=== PATIENT | female | born 1970 | race African-American/Black ===

== ENCOUNTER 2019-12-24 13:23 | Inpatient (IN) | payer MEDICAID ==
[~2019-12-24] VITALS: Ht 172.7 cm; Wt 124.0 kg
[~2019-12-24 13:23] MED LIST: AMIT50TA3 PO; ESOM40CA39 PO; FERR325T50 PO; FOLI1TAB51 PO; GABA100C9 PO; LISI-711; LORA0.5T20 PO; METO-159 PO; MORP30TA5 PO; NOR10T PO; PRE5T PO; SUCR1SUS10 PO; TOPI25TA32 PO
[2019-12-24] MEDS ORDERED: SODIUM CHLORIDE 0.9% 1,000 ML IV ONE ×2 (13:41→15:15)
[2019-12-24 14:08] LABS: Basophils # (auto) 0.1 10 ^3/uL (0-0.2); Basophils % (auto) 0.5 % (0.0-2.0); Eosinophils # (auto) 0.1 10 ^3/uL (0-0.8); Hematocrit 33.6 % (36.0-46.0); Hemoglobin 11.1 g/dL (12.2-16.2); Lymphocytes # (auto) 0.3 10 ^3/uL (0.4-5.4); Lymphocytes % (auto) 3.5 % (10.0-50.0); Mean Corpuscular Hemoglobin 30.4 pg (28.0-32.0); Mean Corpuscular Hgb Conc. 32.9 g/dL (32.0-36.0); Mean Corpuscular Volume 92.4 fL (80.0-100.0); Monocytes # (auto) 0.1 10 ^3/uL (0-1.3); Monocytes % (auto) 1.5 % (0.0-12.0); Neutrophils % (auto) 93.5 % (37.0-80.0); Platelet Count (auto) 309 10^3/uL (140-450); Red Blood Cells 3.64 10^6/uL (4.0-5.20); Red Cell Distribution Width 13.6 % (11.8-14.3); White Blood Cell 9.7 10^3/uL (4.4-10.8)
[2019-12-24 14:31] LABS: Albumin 2.3 g/dL (3.4-5.0); Calcium 7.9 mg/dL (8.5-10.1)
[2019-12-24 14:34] LABS: Bilirubin, Total 0.2 mg/dL (0.2-1.0); Lactic Acid w/Reflex 4.4 mmol/L (0.4-2.0); Total Protein 6.2 g/dL (6.4-8.2)
[2019-12-24] MEDS ORDERED: NOREPINEPHRINE 8 MG/250ML KIT 250 ML IV ONE (14:43)
[2019-12-24 14:47] LABS: Urine Bacteria MANY /hpf (None Seen); Urine Blood 2+ /uL (Negative); Urine Specific Gravity 1.017 (1.001-1.035); Urine WBC 137 /hpf (0 - 5); Urine WBC Clumps PRESENT /hpf (None Seen)
[2019-12-24] MEDS: POTASSIUM CHL 20MEQ/100ML 100 ML IV SCH ×2 (14:50→17:00)
[2019-12-24] MEDS: NOREPINEPHRINE 8 MG/250ML KIT 250 ML IV SCH (15:05)
[2019-12-24 15:10] LABS: Potassium 2.7 mmol/L (3.5-5.1)
[2019-12-24] MEDS ORDERED: cefTRIAXone 1GM/50ML D5W 50 ML IV ONE (15:30)
[2019-12-24] MEDS ORDERED: SUCCINYLCHOLINE CHLORIDE 20 MG/ML 10ML VIAL IV ONE ×4 (15:48→19:00)
[2019-12-24] MEDS ORDERED: ETOMIDATE (2MG/ML) 20ML VIAL IV ONE ×4 (15:48→19:00)
[2019-12-24] MEDS ORDERED: NITROGLYCERIN 0.4 MG SL TAB SL PRN (16:45)
[2019-12-24] MEDS ORDERED: VASOPRESSIN 50 UNITS in D5W 5% 247.5 ML IV ONE (16:45)
[2019-12-24] MEDS ORDERED: MORPHINE SULF INJ 2 MG/ML SYRINGE 1ML IV PRN (16:45)
[2019-12-24] MEDS: MIDAZOLAM DRIP 50 mg/50mL 50 ML IV SCH (16:50)
[2019-12-24] MEDS ORDERED: MIDAZOLAM DRIP 50 mg/50mL 50 ML IV ONE (17:01)
[2019-12-24] MEDS: fentaNYL Drip 2500mCg/250mlNS 250 ML IV SCH (17:55)
[2019-12-24 18:59] VITALS: BP 88/49
[2019-12-24] MEDS: PIPERACILLIN-TAZOB 3.375GM 100 ML IV SCH (20:13)
[2019-12-24 20:31] LABS: CRP High Sensitivity 5.35 mg/dL (< 0.3)
[2019-12-24 20:45] VITALS: BP 107/62
[2019-12-24] MEDS: HYDROCORTISONE SOD SUCC 100 MG/2ML INJ VIAL IV SCH (22:00)
[2019-12-24 22:30] VITALS: BP 113/54
[2019-12-24] MEDS: LINEZOLID 600MG/300ML 300 ML IV SCH (23:01)
[2019-12-25] VITALS (12 sets, daily range): BP systolic 88–148; BP diastolic 52–87
[2019-12-25] MEDS: PHENYLEPHRINE IV 250 ML IV SCH ×4 (00:29→17:40)
[2019-12-25] MEDS ORDERED: PROPOFOL 0 ML IV ONE (00:39)
[2019-12-25] MEDS: PIPERACILLIN-TAZOB 3.375GM 100 ML IV SCH ×4 (00:49→18:19)
[2019-12-25] MEDS: ACETAMINOPHEN 650 mg PER 20 mL UD GT PRN (02:31)
[2019-12-25] MEDS: PROPOFOL 100 ML IV SCH ×2 (04:30→21:37)
[2019-12-25 05:08] LABS: Basophils # (auto) 0.1 10 ^3/uL (0-0.2); Basophils % (auto) 0.4 % (0.0-2.0); Eosinophils # (auto) 0 10 ^3/uL (0-0.8); Eosinophils % (auto) 0.2 % (0.0-7.0); Hematocrit 32.2 % (36.0-46.0); Hemoglobin 10.7 g/dL (12.2-16.2); Lymphocytes # (auto) 0.5 10 ^3/uL (0.4-5.4); Lymphocytes % (auto) 3.1 % (10.0-50.0); Mean Corpuscular Hemoglobin 30.6 pg (28.0-32.0); Mean Corpuscular Hgb Conc. 33.4 g/dL (32.0-36.0); Mean Corpuscular Volume 91.6 fL (80.0-100.0); Monocytes # (auto) 0.4 10 ^3/uL (0-1.3); Monocytes % (auto) 2.8 % (0.0-12.0); Neutrophils # (auto) 13.9 10 ^3/uL (1.6-8.6); Neutrophils % (auto) 93.5 % (37.0-80.0); Nucleated Red Blood Cells % 0.1 %; Platelet Count (auto) 310 10^3/uL (140-450); Red Blood Cells 3.51 10^6/uL (4.0-5.20); Red Cell Distribution Width 13.7 % (11.8-14.3); White Blood Cell 14.8 10^3/uL (4.4-10.8)
--- NOTE | 2019-12-25 06:20 | NUR ---
Respiratory note: RECEIVED PATIENT ON V19 ESPRIT VENT ORALLY INTUBATED WITH AN 8.0 ETT SECURED VIA MAKENZIE AT THE 24CM MARKING AT THE KIP, AND MECHANICALLY VENTILATED WITH THE CHARTED SETTINGS. SPO2 100%, LUNG SOUNDS CL/DIM T/O, NO SECRETIONS WHEN SUCTIONED. SKIN IS WARM/DRY TO THE TOUCH AND IS INTACT NEAR MAKENZIE SITE. THERE IS AN OGT IN PLACE AND SECURED TO THE ETT. NO ADVANCE ACCESS LINES NOTED. NON PITTING EDEMA NOTED IN BILATERAL UPPER EXTREMITIES, NO EDEMA NOTED IN LOWER EXTREMITIES. NO NEW AM CXR TO ASSESS. PATIENT IS UNRESPONSIVE TO BOTH VERBAL/TACTILE STIMULI AND IS SEDATED ON VERSED AND FENTANYL DRIPS. SHE IS RESTING COMFORTABLY AND TOLERATING VENT WELL. FIO2 DECREASED TO 30%, RN ARELI MADE AWARE OF CHANGE. VENT PLUGGED INTO RED OUTLET AND ALL ALARMS ARE SET AND AUDIBLE. WILL CONTINUE TO ASSESS PATENT WELL VENTILATOR FUNCTION.
[2019-12-25] MEDS: fentaNYL Drip 2500mCg/250mlNS 250 ML IV SCH (06:47)
[2019-12-25] MEDS: HYDROCORTISONE SOD SUCC 100 MG/2ML INJ VIAL IV SCH ×2 (09:01→22:43)
[2019-12-25] MEDS ORDERED: ENOXAPARIN SOD 80 MG/0.8ML SYRINGE SC SCH (10:00)
[2019-12-25] MEDS: LINEZOLID 600MG/300ML 300 ML IV SCH ×2 (10:14→22:57)
--- NOTE | 2019-12-25 11:43 | NUR ---
WOUND CARE NOTE: Wound care in to see patient per wound care request regarding wounds that are noted present on admission. Bedside nurse took photograph of patient's wounds upon admission for reference. Patient is 49 years old female with admitting diagnosis of Septic Shock. Patient is resting in ER bed#7. Patient is intubated, sedated and mechanically ventilated. Her Zay score is 12. Skin/wound assessment done with the assistance of patient's nurse, VALERIA Martinez. Noted patient's sacral and posterior thighs has scattered pink scar tissue with multi open full thickness wounds to L proximal sacrum (4x0.8cm), L distal sacrum (0.8x1cm) and Rt distal sacrum/posterior thigh (4x2x0.3cm). Patient's wounds to L sacrum and Rt lower buttocks are consistent with Stage 3 pressure injuries with moisture associated skin damage. 0.8x2.2cm open partial thickness wound noted on patent's medial sacrum at intragluteal fold. Cleansed patient's sacral, buttocks with wound cleanser,patted dry with gauze, applied Thera honey gel to open wounds and Z Guard cream to nichole wound and lower buttocks. Covered wounds with Opti foam sacral /gentle dressing. Patient's lower abdominal fold noted with moist erythremic skin with multi superficial,partial thickness skin tear consistent with intertriginous dermatitis. Cleansed site with mild soap and water,patted dry and applied Antifungal clear ointment and placed clean line to help wick moisture. Patient;s L great toe noted with missing toe nail and has dried blood/scab, area is clean and dry, left open to air. Patient tolerated, repositioned patient for comfort facing her L side, redistributed pressure points with pillows. VALERIA Martinez at bedside. RECOMMENDATION: Nursing to continue with BID/PRN cleaning and application of Z Guard cream lower buttocks,perineum; Antifungal clear to abdominal fold intertrigo ; Daily/PRN dressing change to multi open wounds to L sacrum and Rt lower buttocks and high per MD order,Dietary consult, frequent turning and repositioning schedule as condition permits, redistribute pressure points with pillows,air mattress (ordered), frequent nichole care/check, keep clean and dry, elevate heels on pillows, continue monitoring by wound care while patient is hospitalized. Addendum: 12/25/19 at 1629 by Loreta Miller RN Amended: Links added.
--- NOTE | 2019-12-25 12:23 | NUR ---
AIR MATTRESS: Air mattress ordered at [facility]. MEGAN 12/25/19 @ 1820. Reference #[id number]. Please call [facility] at if needed to follow up. Addendum: 12/25/19 at 1224 by Loreta Miller RN Amended: Links added.
[2019-12-25 13:40] LABS: BUN/Creatinine Ratio 21.3; Calcium 8.2 mg/dL (8.5-10.1); Phosphorus 3.6 mg/dL (2.5-4.90)
[2019-12-25] MEDS: ALBUMIN 25% 100 ML IV SCH ×2 (13:40→22:42)
[2019-12-25] MEDS ORDERED: POTASSIUM CHLORIDE 40 MEQ, LIDOCAINE 1% (LOCAL ANESTH.) 4 ML in SODIUM CHL 0.9% 100 ML IV ONE (14:15)
[2019-12-25] MEDS: SOD CHL 0.45% 1,000 ML IV SCH (14:42)
[2019-12-25] MEDS: NOREPINEPHRINE 8 MG/250ML KIT 250 ML IV SCH (15:06)
[2019-12-25] MEDS: MIDAZOLAM DRIP 50 mg/50mL 50 ML IV SCH (16:41)
[2019-12-26] VITALS (12 sets, daily range): BP systolic 112–162; BP diastolic 58–95
[2019-12-26] MEDS: PIPERACILLIN-TAZOB 3.375GM 100 ML IV SCH ×2 (00:37→06:33)
[2019-12-26] MEDS: PHENYLEPHRINE IV 250 ML IV SCH ×3 (02:00→18:40)
[2019-12-26] MEDS: SOD CHL 0.45% 1,000 ML IV SCH ×3 (04:48→20:15)
[2019-12-26 06:39] LABS: Basophils # (auto) 0 10 ^3/uL (0-0.2); Basophils % (auto) 0.1 % (0.0-2.0); Eosinophils # (auto) 0 10 ^3/uL (0-0.8); Hematocrit 25.9 % (36.0-46.0); Hemoglobin 8.7 g/dL (12.2-16.2); Lymphocytes # (auto) 0.4 10 ^3/uL (0.4-5.4); Lymphocytes % (auto) 2.9 % (10.0-50.0); Mean Corpuscular Hgb Conc. 33.8 g/dL (32.0-36.0); Mean Corpuscular Volume 91.8 fL (80.0-100.0); Monocytes # (auto) 0.4 10 ^3/uL (0-1.3); Monocytes % (auto) 3.2 % (0.0-12.0); Neutrophils % (auto) 93.8 % (37.0-80.0); Platelet Count (auto) 230 10^3/uL (140-450); Red Blood Cells 2.82 10^6/uL (4.0-5.20); Red Cell Distribution Width 13.6 % (11.8-14.3); White Blood Cell 12.7 10^3/uL (4.4-10.8)
[2019-12-26] MEDS: ALBUMIN 25% 100 ML IV SCH (06:57)
[2019-12-26 07:14] LABS: BUN/Creatinine Ratio 18.3; Calcium 8.5 mg/dL (8.5-10.1)
[2019-12-26] MEDS: NOREPINEPHRINE 8 MG/250ML KIT 250 ML IV SCH (11:00)
[2019-12-26] MEDS: HYDROCORTISONE SOD SUCC 100 MG/2ML INJ VIAL IV SCH ×2 (13:37→22:00)
[2019-12-26] MEDS: LINEZOLID 600MG/300ML 300 ML IV SCH ×2 (13:38→22:00)
[2019-12-26] MEDS ORDERED: ERTAPENEM SOD 1 GM INJ VIAL IM SCH (15:00)
[2019-12-26] MEDS ORDERED: POTASSIUM CHLORIDE 40 MEQ, LIDOCAINE 1% (LOCAL ANESTH.) 4 ML in SODIUM CHL 0.9% 100 ML IV ONE (15:45)
--- NOTE | 2019-12-26 15:50 | NUR ---
Nutrition consult/assessment Notes please see attached link for complete assessment [employer] needs ABW 113 [id number] kcals (17-20 kcal/kgBW), Est Protein needs: 113-123 gms/day (1.0-1.1 gm/kgBW). Will continue to monitor and reassess prn. Rec: Glucerna @ 70 ml/hr per MD approval Addendum: 12/26/19 at [address] Amended: Links added.
[2019-12-26] MEDS: fentaNYL Drip 2500mCg/250mlNS 250 ML IV SCH (17:47)
[2019-12-26] MEDS: MIDAZOLAM DRIP 50 mg/50mL 50 ML IV SCH (18:28)
[2019-12-26] MEDS: PROPOFOL 100 ML IV SCH (18:37)
--- NOTE | 2019-12-26 22:15 | NUR ---
RT Transport Note: Patient transported to ICU 111 with RT Fransico Portillo and RN CHER. Patient on radiation monitor with alarms set and audible, ambu-bag/mask connected to 02 tank. Patient back on ventilator V19 with no adverse reaction noted. Transport completed without incident.
[2019-12-27] VITALS (90 sets, daily range): BP systolic 76–145; BP diastolic 40–80
[2019-12-27] MEDS: PHENYLEPHRINE IV 250 ML IV SCH ×3 (03:00→19:40)
[2019-12-27 05:00] LABS: Basophils # (auto) 0 10 ^3/uL (0-0.2); Eosinophils # (auto) 0 10 ^3/uL (0-0.8); Eosinophils % (auto) 0.1 % (0.0-7.0); Hematocrit 24.2 % (36.0-46.0); Hemoglobin 8.1 g/dL (12.2-16.2); Lymphocytes # (auto) 0.5 10 ^3/uL (0.4-5.4); Lymphocytes % (auto) 4.9 % (10.0-50.0); Mean Corpuscular Hemoglobin 30.8 pg (28.0-32.0); Mean Corpuscular Hgb Conc. 33.4 g/dL (32.0-36.0); Mean Corpuscular Volume 92.4 fL (80.0-100.0); Monocytes # (auto) 0.6 10 ^3/uL (0-1.3); Monocytes % (auto) 5.7 % (0.0-12.0); Neutrophils # (auto) 9.4 10 ^3/uL (1.6-8.6); Neutrophils % (auto) 89.3 % (37.0-80.0); Nucleated Red Blood Cells % 0.1 %; Platelet Count (auto) 201 10^3/uL (140-450); Red Blood Cells 2.62 10^6/uL (4.0-5.20); Red Cell Distribution Width 13.7 % (11.8-14.3); White Blood Cell 10.5 10^3/uL (4.4-10.8)
[2019-12-27 05:27] LABS: Albumin 2.5 g/dL (3.4-5.0); Calcium 8.3 mg/dL (8.5-10.1); Magnesium 1.9 mg/dL (1.6-2.6)
[2019-12-27 05:33] LABS: BUN/Creatinine Ratio 17.1; Bilirubin, Total 0.2 mg/dL (0.2-1.0); Total Protein 5.8 g/dL (6.4-8.2)
--- NOTE | 2019-12-27 06:00 | NUR ---
Respiratory note: RECEIVED PT ON VENT V-19 PLUGGED INTO RED OUTLET. ALL VENT ALARMS ARE AUDIBLE, AND FUNCTIONING. AMBU BAG/MASK IS AT BEDSIDE CONNECTED TO AN O2 SOURCE. ETT IS 8.0 @ THE 24 LIP LINE SECURED WITH A MAKENZIE. MOVED ETT FROM LEFT, TO CENTER. NO ORAL/SKIN BREAK DOWN NOTED. WHEN CHECKING TUBE, AND LIP LINE THERE WERE AT LEAST 10 MAGGOTS CRAWLING OUT OF PT RIGHT NOSTRIL ONTO THE MAKENZIE, AND ETT. VALERIA RODRIGUEZ WAS NOTIFIED OF FINDINGS. I SX RIGHT NASAL PASSAGE WITH YANKAUER TO CLEAR THE MAGGOTS, WELL ORAL SX FOR THIN, CLEAR SECRETIONS, AND A FEW MORE MAGGOTS. BS WERE COARSE BILATERALLY. SX ETT FOR A SCANT AMOUNT OF THIN, CLEAR SECRETIONS. GAG REFLEX NOTED. PT SKIN IS COOL/DRY TO THE TOUCH. SLIGHT EDEMA NOTED IN HANDS. NO NEW VENT CHANGES ORDERED AT THIS TIME. WILL CONTINUE TO MONITOR PT.
--- NOTE | 2019-12-27 06:38 | NUR ---
RT BROUGHT TO MY ATTENTION THAT PT HAS MAGGOTS IN HER R NOSTRIL . SHE ESTIMATED THAT THERE WERE APPROX 10 THAT SHE SX WITH THE YAUNKAR.
[2019-12-27] MEDS: SOD CHL 0.45% 1,000 ML IV SCH ×2 (09:12→09:22)
[2019-12-27] MEDS: POTASSIUM CHL 20MEQ/100ML 100 ML IV SCH ×2 (09:13→09:16)
[2019-12-27] MEDS: ERTAPENEM SOD INJ 1 GM in SODIUM CHL 0.9% 50 ML IV SCH (10:00)
[2019-12-27] MEDS ORDERED: PANTOPRAZOLE 40 MG/10 ML VIAL INJ IV ONE (10:30)
--- NOTE | 2019-12-27 10:30 | NUR ---
MD ROUNDS DR. CLEMONS AT BEDSIDE. MD UPDATED ON PATIENTS STATUS. SEE NEW ORDERS.
[2019-12-27] MEDS: LINEZOLID 600MG/300ML 300 ML IV SCH (11:03)
[2019-12-27] MEDS: HYDROCORTISONE SOD SUCC 100 MG/2ML INJ VIAL IV SCH ×2 (11:03→22:00)
[2019-12-27] MEDS: MIDAZOLAM DRIP 50 mg/50mL 50 ML IV SCH (12:49)
[2019-12-27] MEDS: fentaNYL Drip 2500mCg/250mlNS 250 ML IV SCH (12:51)
--- NOTE | 2019-12-27 13:38 | NUR ---
Family updated on pt status Family of NJDADAMARENTETE updated on patient's status and condition. All questions and concerns addressed. verbalized understanding.
[2019-12-27] MEDS: NOREPINEPHRINE 8 MG/250ML KIT 250 ML IV SCH (14:56)
[2019-12-27] MEDS: PROPOFOL 100 ML IV SCH (15:15)
[2019-12-27] MEDS ORDERED: ERTAPENEM SOD INJ 1 GM in SODIUM CHL 0.9% 50 ML IV ONE (16:45)
[2019-12-27] MEDS: SOD CHL 0.45% WITH 20MEQ KCL 1,000 ML IV SCH (18:07)
[2019-12-27] MEDS: SALINE 0.65 % NASAL SPRAY 45ML BOTTLE EACHNOSTRI SCH ×2 (18:07→22:00)
[2019-12-27] MEDS: ALBUTEROL SULF 2.5 MG/0.5ML(0.5%) NEB SOLN NEB SCH ×2 (18:30→22:09)
[2019-12-27] MEDS: IPRATROPIUM BROM 0.5 MG/2.5ML INH SOL NEB SCH ×2 (18:30→22:09)
[2019-12-27] MEDS: ACETYLCYSTEINE 10 %(100MG/ML) SOL 4ML NEB SCH ×2 (18:31→22:09)
[2019-12-27] MEDS: MUPIROCIN 2% OINT 15gm or 22gm EACHNOSTRI SCH (22:00)
[2019-12-28] VITALS (97 sets, daily range): BP systolic 92–147; BP diastolic 54–85
[2019-12-28] MEDS: IPRATROPIUM BROM 0.5 MG/2.5ML INH SOL NEB SCH ×6 (02:21→22:31)
[2019-12-28] MEDS: ALBUTEROL SULF 2.5 MG/0.5ML(0.5%) NEB SOLN NEB SCH ×6 (02:21→22:32)
[2019-12-28] MEDS: ACETYLCYSTEINE 10 %(100MG/ML) SOL 4ML NEB SCH ×6 (02:21→22:32)
[2019-12-28 04:32] LABS: Basophils # (auto) 0 10 ^3/uL (0-0.2); Eosinophils # (auto) 0 10 ^3/uL (0-0.8); Hematocrit 24.1 % (36.0-46.0); Lymphocytes # (auto) 0.5 10 ^3/uL (0.4-5.4); Monocytes # (auto) 0.5 10 ^3/uL (0-1.3); Red Blood Cells 2.59 10^6/uL (4.0-5.20)
[2019-12-28 04:36] LABS: Eosinophils % (auto) 0.2 % (0.0-7.0); Lymphocytes % (auto) 6.7 % (10.0-50.0); Mean Corpuscular Hemoglobin 30.9 pg (28.0-32.0); Mean Corpuscular Hgb Conc. 33.2 g/dL (32.0-36.0); Mean Corpuscular Volume 93.1 fL (80.0-100.0); Monocytes % (auto) 5.7 % (0.0-12.0); Neutrophils % (auto) 87.4 % (37.0-80.0); Platelet Count (auto) 219 10^3/uL (140-450); Red Cell Distribution Width 13.6 % (11.8-14.3)
[2019-12-28 04:49] LABS: BUN/Creatinine Ratio 13.1; Calcium 8.2 mg/dL (8.5-10.1); Potassium 3.6 mmol/L (3.5-5.1)
--- NOTE | 2019-12-28 07:35 | NUR ---
OPENING SHIFT NOTE REPORT RECEIVED FROM SOLAR PHOTOVOLTAIC INSTALLER RN, MORNING ASSESSMENT PERFORMED AND DOCUMENTED. PATIENT MECHANICALLY VENTILATED AND SEDATED, VSS AND DOCUMENTED. YEPEZ CATHETER DRAINING CLOUDY WITH SEDIMENT YELLOW URINE TO GRAVITY. PATIENT REPOSITIONED FOR COMFORT. FALL AND SAFETY PRECAUTIONS IN PLACE. WILL CONTINUE TO MONITOR.
[2019-12-28] MEDS: fentaNYL Drip 2500mCg/250mlNS 250 ML IV SCH (08:15)
[2019-12-28] MEDS: HYDROCORTISONE SOD SUCC 100 MG/2ML INJ VIAL IV SCH ×2 (09:11→22:00)
[2019-12-28] MEDS: ERTAPENEM SOD INJ 1 GM in SODIUM CHL 0.9% 50 ML IV SCH (09:11)
[2019-12-28] MEDS: PANTOPRAZOLE 40 MG/10 ML VIAL INJ IV SCH (09:11)
[2019-12-28] MEDS: SOD CHL 0.45% WITH 20MEQ KCL 1,000 ML IV SCH (09:12)
[2019-12-28] MEDS: SALINE 0.65 % NASAL SPRAY 45ML BOTTLE EACHNOSTRI SCH ×4 (09:13→22:00)
[2019-12-28] MEDS: MUPIROCIN 2% OINT 15gm or 22gm EACHNOSTRI SCH ×2 (09:14→22:00)
--- NOTE | 2019-12-28 09:45 | NUR ---
CARES NASAL IRRIGATION, ORAL AND GOOD CARE PERFORMED. NO MAGGOTS NOTED WHEN CLEANING NASAL CAVITY AND ORAL CARE. NASAL SPRAY AND BACTROBAN APPLIED TO BILATERAL NOSTRILS. EXCORIATED GOOD AREA WASHED WITH SOAP AND WARM WATER - YEPEZ CARE PROVIDED WELL. PATIENT CURRENTLY ON SPECIALTY BED AND REPOSITIONED FOR COMFORT. FALL AND SAFETY PRECAUTIONS IN PLACE. WILL CONTINUE TO MONITOR.
--- NOTE | 2019-12-28 11:25 | NUR ---
HOSPITALIST AT BEDSIDE DR CLEMONS UPDATED ON PATIENT'S STATUS AND AWARE THAT PATIENT IS CURRENTLY ON CPAP TRIAL SINCE [address] CLEMONS ALSO AWARE OF NO MAGGOTS NOTED AFTER AND BEFORE NASAL WASHING AND MORNING ASSESSMENT. ORDERS RECEIVED AND WILL BE CARRIED OUT.
[2019-12-28] MEDS ORDERED: FUROSEMIDE 40 MG/4 ML VIAL IV ONE (11:30)
--- NOTE | 2019-12-28 12:00 | NUR ---
Family updated on pt status Family of NJDADAMARENTETE updated on patient's status and condition after password verification. All questions and concerns addressed. Patient's spouse Ashkan verbalized understanding.
[2019-12-28] MEDS: PHENYLEPHRINE IV 250 ML IV SCH (12:20)
--- NOTE | 2019-12-28 12:22 | NUR ---
Nutrition Followup Notes Wt: 126.0 kg Pt is sedated, intubated, NPO, on CPAP trail per RN with no new diet orders per RN. [employer] needs ABW 113 [id number] kcals (17-20 kcal/kgBW), Est Protein needs: 113-123 gms/day (1.0-1.1 gm/kgBW). Will continue to monitor and reassess prn. LAB: CREAT 1.07 H, CA 8.2 L, ALB 2.5 L. GI: Pt had 1 BM today per RN doc BS: 9 high risk Please refer to wound assessment report for full details. PES: Altered nutrition related lab values r.t current chronic medical condition aeb elev RFT hyperglycemia Decreased nutrient needs r/t adiposity aeb pt`s high BMI of 50.2 kgm2 Impaired swallowing r.t current medical condition aeb pt`s intubated sedated with order of NPO Comments Will continue to monitor PO status, skin status, pertinent labs and weight trends. Will f/u in 2-3 days. 1) advance diet as medically feasible. 2) consider EN support with Glucerna @ 70 ml/hr if pt continues to be NPO. 3) refer to CDE on DC. 4) consider MVI/C bid. 5) continue current plan of care
[2019-12-28] MEDS: PROPOFOL 100 ML IV SCH (12:37)
--- NOTE | 2019-12-28 13:33 | NUR ---
assessment Patient is a 49 year old female who is on a vent in ICU. Per patients Ashkan [phone] prior to admission patient lived home with him and functioned with his assistance. Ashkan is patients SS caregiver. Patients PCP is Dr Carney. Patient has a nebulizer, wheelchair, shower chair, fww and bedside commode for home use. Ashkan informed me patient fell on her knee last May and has needed help since then. Ashkan informed me patient was having fever, shortness of breath and low blood pressure so he called 911 and patient was brought to ER and admitted. I informed Ashkan that patients post discharge needs to be determined after extubation and prior to discharge. Ashkan verbalized understanding. I Will continue to monitor and follow up as appropriate. Addendum: 12/28/19 at 1339 by Leann HOPE Amended: Links added.
--- NOTE | 2019-12-28 13:56 | NUR ---
CALL RECEIVED FROM HOSPITALIST DR CLEMONS UPDATED ON PATIENT'S STATUS AND DROWSY MENTAL STATUS. DR CLEMONS VERBALIZED UNDERSTANDING AND ORDERED PATIENT TO REMAIN ON CPAP FOR AWHILE LONGER LONG SHE TOLERATES IT BUT IF SHE DOES NOT WAKE ENOUGH, CHANGE TO AC. Antonia CAMARGO NOTIFIED.
--- NOTE | 2019-12-28 14:45 | NUR ---
PLACED PT. BACK ON AC MODE, PT. NOT AWAKE ENOUGH, NOT FOLLOWING COMMANDS. RN. TO CONTACT DR. CLEMONS.
[2019-12-28] MEDS: NOREPINEPHRINE 8 MG/250ML KIT 250 ML IV SCH (14:56)
--- NOTE | 2019-12-28 15:00 | NUR ---
CONTACT HOSPITALIST DR CLEMONS UPDATED ON PATIENT'S MENTAL STATUS AND NOT FULLY WAKING UP. ORDERS TO CHANGE CPAP TO AC AND HEAD CT WITHOUT CONTRAST.
[2019-12-28] MEDS: MEROPENEM 1GM IVPB 100 ML IV SCH ×2 (15:41→22:00)
[2019-12-28] MEDS ORDERED: Glucerna 1.2 Cal 1Liter BOTTLE GT SCH (16:00)
--- NOTE | 2019-12-28 16:20 | NUR ---
Family updated on pt status Family of TETE POLLOCK updated on patient's status and condition after password verification. All questions and concerns addressed. Patient spouse Ashkan verbalized understanding.
[2019-12-28] MEDS: MIDAZOLAM DRIP 50 mg/50mL 50 ML IV SCH (16:40)
--- NOTE | 2019-12-28 17:42 | NUR ---
INCREASED HR/RESPIRATIONS PATIENT NOTED TO BE USING ACCESSORY MUSCLES, COUGHING WITH INCREASED HEART RATE AND RESPIRATIONS. RE-START SEDATION PER PROTOCOL. AWARE.
--- NOTE | 2019-12-28 18:16 | NUR ---
OFF FLOOR TO RADIOLOGY FOR ORDERED HEAD CT VIA [facility], ACCOMPANIED BY GRETA CHARGE NURSE - Antonia AND FIELD MAP TECHNICIAN. WILL CONTINUE TO MONITOR UPON RETURN TO FLOOR.
--- NOTE | 2019-12-28 18:32 | NUR ---
PATIENT RETURNED TO FLOOR FROM RADIOLOGY, NO DISTRESS NOTED, PATIENT CONNECTED TO BEDSIDE MONITOR AND BEDSIDE VENTILATOR, R.T. AND CHARGE NURSE PRESENT. PATIENT ADJUSTED FOR COMFORT, FALL AND SAFETY PRECAUTIONS IN PLACE.
--- NOTE | 2019-12-28 19:05 | NUR ---
Report received from VALERIA Mcguire. Patient intubated with ETT 8.0 26 cm L/L. Vent Settings: AC 14, Vt 500, FiO2 30%, PEEP 5. Patient IV Drips: Fentanyl 25 mcg/kg/min. Will start TF via OGT with Glucerna. Will continue with POC; and, will continue to monitor VS, RASS, and clinical status.
--- NOTE | 2019-12-28 19:45 | NUR ---
Patient awake and alert moving RUE to ETT. RASS +2. HR ST 140's. RR 38-40. Patient fighting vent with cough. Fentanyl drip increase to 50 mcg/hr. Patient suction with scant clear secretions. Patient looking at feature writer and tracking. Patient unable to follow command. Will continue to monitor VS, RASS with Sedation, and clinical status.
--- NOTE | 2019-12-28 20:00 | NUR ---
Patient continue awake and alert; and, fighting vent and coughing. Patient moving RUE to ETT. HR ST 130's, RR 34-36. RASS +3. Fentanyl drip increase to 75 mcg/hr. Will continue to monitor VS, RASS and sedation, and clinical status. Addendum: 12/28/19 at 2118 by Ricardo Moe RN OGT Tube Feeding Glucerna 1.2 started at 30 ml/hr.
--- NOTE | 2019-12-28 20:15 | NUR ---
Patient continue agitation with RASS and moving RUE to ETT. Patient awake and alert. HR ST130, RR 28-30. Fentanyl drip increase to 100 mcg/hr. Will continue to monitor VS, RASS and sedation, and clinical status.
--- NOTE | 2019-12-28 21:05 | NUR ---
Patient Ashkan called for updated status. Tag Stringer will call patient back in 10-15 minutes.
--- NOTE | 2019-12-28 21:20 | NUR ---
Patient awake and alert with RASS +2. HR ST 130's, RR 24-27. Fentanyl drip increase to 125 mcg/hr.
--- NOTE | 2019-12-28 21:25 | NUR ---
Refrigeration Engineering Teacher calls patient Ashkan and updated patient status.
--- NOTE | 2019-12-28 22:15 | NUR ---
Patient awake and alert with RASS +1. Patient attempting to push ETT out with tongue. Fentanyl drip increase to 150 mcg/hr.
--- NOTE | 2019-12-28 22:45 | NUR ---
Patient awake and alert RASS 0. Fentanyl drip increase to175 mcg/hr. Will continue to monitor VS, RASS, and clinical status.
--- NOTE | 2019-12-28 23:45 | NUR ---
Patie awake and alert, coughing and fighting vent. Patient moving RUE to ETT and attempting to push ETT with tongue. Fentanyl drip increase to 200 mcg/hr; also, Versed drip started at 2 mg/hr. Will continue to monitor VS, RASS and sedation, and clinical status.
[2019-12-29] VITALS (103 sets, daily range): BP systolic 89–158; BP diastolic 43–96
--- NOTE | 2019-12-29 00:30 | NUR ---
Patient Awake and Alert with RASS 0. Versed drip increase to 5 mg/hr.
--- NOTE | 2019-12-29 01:00 | NUR ---
OGT TF off for CPAP trial this am.
[2019-12-29] MEDS: IPRATROPIUM BROM 0.5 MG/2.5ML INH SOL NEB SCH ×6 (02:30→22:09)
[2019-12-29] MEDS: ALBUTEROL SULF 2.5 MG/0.5ML(0.5%) NEB SOLN NEB SCH ×6 (02:30→22:09)
[2019-12-29] MEDS: ACETYLCYSTEINE 10 %(100MG/ML) SOL 4ML NEB SCH ×6 (02:30→22:10)
--- NOTE | 2019-12-29 03:10 | NUR ---
Equipment Operator at bedside. Telephone Lineman collected blood from CVC and specimens given to Equipment Operator, specimens sent to lab.
[2019-12-29 04:30] LABS: Basophils # (auto) 0 10 ^3/uL (0-0.2); Basophils % (auto) 0.1 % (0.0-2.0); Eosinophils # (auto) 0 10 ^3/uL (0-0.8); Hematocrit 25.1 % (36.0-46.0); Hemoglobin 8.2 g/dL (12.2-16.2); Lymphocytes # (auto) 0.2 10 ^3/uL (0.4-5.4); Lymphocytes % (auto) 2.8 % (10.0-50.0); Mean Corpuscular Hemoglobin 30.3 pg (28.0-32.0); Mean Corpuscular Hgb Conc. 32.8 g/dL (32.0-36.0); Mean Corpuscular Volume 92.6 fL (80.0-100.0); Monocytes # (auto) 0.3 10 ^3/uL (0-1.3); Monocytes % (auto) 3.4 % (0.0-12.0); Neutrophils # (auto) 7.5 10 ^3/uL (1.6-8.6); Neutrophils % (auto) 93.7 % (37.0-80.0); Nucleated Red Blood Cells % 0.1 %; Platelet Count (auto) 234 10^3/uL (140-450); Red Blood Cells 2.71 10^6/uL (4.0-5.20); Red Cell Distribution Width 13.7 % (11.8-14.3)
[2019-12-29 04:44] LABS: BUN/Creatinine Ratio 12.8; Potassium 3.2 mmol/L (3.5-5.1)
--- NOTE | 2019-12-29 05:30 | NUR ---
Versed drip decrease to 1 mg/hr for CPAP trial this am. Will continue to monitor VS, RASS and sedation, and clinical status.
[2019-12-29] MEDS: MEROPENEM 1GM IVPB 100 ML IV SCH ×3 (05:55→20:49)
[2019-12-29] MEDS: SALINE 0.65 % NASAL SPRAY 45ML BOTTLE EACHNOSTRI SCH ×5 (05:55→20:56)
[2019-12-29] MEDS: fentaNYL Drip 2500mCg/250mlNS 250 ML IV SCH ×2 (08:15→20:52)
[2019-12-29] MEDS: PROPOFOL 100 ML IV SCH ×2 (09:37→14:23)
--- NOTE | 2019-12-29 10:13 | NUR ---
FAMILY PHONE CALL Spoke with patient's Ashkan, password provided. Informed that during rounds physician decided to postpone any weaning trial as this time as the patient is having large amount of secretions from ETT. Verbalized understanding.
--- NOTE | 2019-12-29 10:20 | NUR ---
AT BEDSIDE Dr. Bentley at bedside, orders received. No orders for CPAP trial at this time, patient coughing and having difficult time tolerating ventilator with decreased sedation. Will increase sedation to achieve target RASS score.
[2019-12-29] MEDS: HYDROCORTISONE SOD SUCC 100 MG/2ML INJ VIAL IV SCH ×2 (10:24→20:49)
[2019-12-29] MEDS: PANTOPRAZOLE 40 MG/10 ML VIAL INJ IV SCH (10:24)
[2019-12-29] MEDS: MUPIROCIN 2% OINT 15gm or 22gm EACHNOSTRI SCH ×2 (10:26→20:49)
[2019-12-29] MEDS ORDERED: POTASSIUM CHLORIDE 20 MEQ, LIDOCAINE 1% (LOCAL ANESTH.) 2 ML in SODIUM CHL 0.9% 100 ML IV ONE (10:30)
[2019-12-29] MEDS ORDERED: POTASSIUM CHL 20MEQ/100ML 100 ML IV ONE (13:45)
[2019-12-29] MEDS: NOREPINEPHRINE 8 MG/250ML KIT 250 ML IV SCH (14:56)
--- NOTE | 2019-12-29 16:30 | NUR ---
ROUNDS: Total linen change and skin care provided. Patient tolerated well.
[2019-12-29] MEDS: MIDAZOLAM DRIP 50 mg/50mL 50 ML IV SCH ×2 (16:40→20:51)
--- NOTE | 2019-12-29 20:00 | NUR ---
SHIFT OPENING NOTE RECEIVED PATIENT SEDATED AND INTUBATED. FENTANYL AT 200, PROPOFOL AT 35. PERIODS OF ANXIETY. VENTILATOR SETTINGS AC 14, TV 500, FI02 30%, PEEP 5. POX 100%. ETT SIZE 8, WITH 26 AT THE LIP. OG TUBE INFUSING GLUCERNA 1.2 AT 40 ML/H WITH 5ML OF RESIDUALS (GOAL IS 70 ML/H). YEPEZ CATH DRAINING YELLOW URINE WITH SEDIMENT TO GRAVITY. SCDS ON. RIGHT FEMORAL TLC INFUSING DRIPS. PHYSICAL ASSESSMENT COMPLETED, SEE INTERVENTIONS. WILL CLOSELY MONITOR.
[2019-12-30] VITALS (92 sets, daily range): BP systolic 80–141; BP diastolic 42–95
[2019-12-30] MEDS: PROPOFOL 100 ML IV SCH ×4 (00:39→23:26)
[2019-12-30] MEDS: ALBUTEROL SULF 2.5 MG/0.5ML(0.5%) NEB SOLN NEB SCH ×5 (02:40→22:25)
[2019-12-30] MEDS: IPRATROPIUM BROM 0.5 MG/2.5ML INH SOL NEB SCH ×5 (02:40→22:25)
[2019-12-30] MEDS: ACETYLCYSTEINE 10 %(100MG/ML) SOL 4ML NEB SCH ×6 (02:40→22:25)
--- NOTE | 2019-12-30 02:45 | NUR ---
MORNING HYGIENE CARE FULL BED BATH PERFORMED USING CHG WIPES AND WARM SOAPY WASH CLOTHES. ORAL CARE PERFORMED. GOWN CHANGED. YEPEZ CARE DONE. PARTIAL LINEN CHANGED. PATIENT REPOSITIONED FOR COMFORT. TOLERATED IT WELL.
[2019-12-30 04:16] LABS: Basophils # (auto) 0 10 ^3/uL (0-0.2); Eosinophils # (auto) 0 10 ^3/uL (0-0.8); Lymphocytes # (auto) 0.3 10 ^3/uL (0.4-5.4); Mean Corpuscular Hgb Conc. 32.9 g/dL (32.0-36.0); Monocytes # (auto) 0.4 10 ^3/uL (0-1.3); Neutrophils # (auto) 7.8 10 ^3/uL (1.6-8.6); White Blood Cell 8.5 10^3/uL (4.4-10.8)
[2019-12-30 04:18] LABS: Basophils % (auto) 0.1 % (0.0-2.0); Hematocrit 24.3 % (36.0-46.0); Lymphocytes % (auto) 3.6 % (10.0-50.0); Mean Corpuscular Hemoglobin 30.4 pg (28.0-32.0); Mean Corpuscular Volume 92.3 fL (80.0-100.0); Monocytes % (auto) 5.1 % (0.0-12.0); Neutrophils % (auto) 91.2 % (37.0-80.0); Platelet Count (auto) 229 10^3/uL (140-450); Red Blood Cells 2.63 10^6/uL (4.0-5.20); Red Cell Distribution Width 13.4 % (11.8-14.3)
[2019-12-30 04:34] LABS: Calcium 7.9 mg/dL (8.5-10.1); Potassium 3.4 mmol/L (3.5-5.1)
[2019-12-30 04:37] LABS: Albumin 2.3 g/dL (3.4-5.0); BUN/Creatinine Ratio 15.1; Magnesium 2.2 mg/dL (1.6-2.6)
[2019-12-30 04:39] LABS: Bilirubin, Total 0.2 mg/dL (0.2-1.0); Total Protein 5.7 g/dL (6.4-8.2)
[2019-12-30] MEDS: SALINE 0.65 % NASAL SPRAY 45ML BOTTLE EACHNOSTRI SCH ×4 (05:02→22:00)
[2019-12-30] MEDS: MEROPENEM 1GM IVPB 100 ML IV SCH ×3 (05:03→22:00)
--- NOTE | 2019-12-30 07:05 | NUR ---
END OF SHIFT REPORT GIVEN AND CARE ENDORSED TO PAU SHAW.
[2019-12-30] MEDS ORDERED: POTASSIUM CHLORIDE 20 MEQ, LIDOCAINE 1% (LOCAL ANESTH.) 2 ML in SODIUM CHL 0.9% 100 ML IV ONE (09:45)
[2019-12-30] MEDS ORDERED: VANCOMYCIN 1GM/250ML 250 ML IV ONE (10:00)
[2019-12-30] MEDS ORDERED: POTASSIUM CHL 20MEQ/100ML 100 ML IV ONE (10:00)
[2019-12-30] MEDS ORDERED: VANCOMYCIN PER PHARMACY 0 MG IV SCH (10:00)
[2019-12-30] MEDS: MUPIROCIN 2% OINT 15gm or 22gm EACHNOSTRI SCH ×2 (10:00→22:00)
[2019-12-30] MEDS: HYDROCORTISONE SOD SUCC 100 MG/2ML INJ VIAL IV SCH ×2 (10:33→22:00)
[2019-12-30] MEDS: PANTOPRAZOLE 40 MG/10 ML VIAL INJ IV SCH (10:33)
--- NOTE | 2019-12-30 11:44 | NUR ---
Nutrition Followup Notes Wt: 126.0 kg Pt is sedated, intubated, sedated with propofol @ 42.86 ml/hr 1131 kcals from fats. pt is currently NPO on EN support with Glucerna @ 40 ml/hr providing 1152 kcals and 54 gm proteins. [employer] needs ABW 113 [id number] kcals (17-20 kcal/kgBW), Est Protein needs: 113-123 gms/day (1.0-1.1 gm/kgBW). Will continue to monitor and reassess prn. LAB: GLU 108 H, CA 7.9 L, ALB 2.3 L. GI: Pt had 1 BM today per RN doc BS: 9 high risk Please refer to wound assessment report for full details. PES: Altered nutrition related lab values r.t current chronic medical condition aeb elev RFT hyperglycemia Decreased nutrient needs r/t adiposity aeb pt`s high BMI of 50.2 kgm2 Impaired swallowing r.t current medical condition aeb pt`s intubated sedated with order of NPO Comments Will continue to monitor PO status, skin status, pertinent labs and weight trends. Will f/u in 2-3 days. 1) advance diet as medically feasible. 2) consider EN support with Glucerna @ 45 ml/hr if pt continues to be NPO on current rate of propofol. 3) refer to CDE on DC. 4) consider MVI/C bid. 5) consider prostat 1 packet bid. 5) continue current plan of care
[2019-12-30] MEDS: NOREPINEPHRINE 8 MG/250ML KIT 250 ML IV SCH (14:56)
--- NOTE | 2019-12-30 16:00 | NUR ---
ELIMINATION; Patient had large BM. Skin care provided, new optifoam gentle applied to sacral area. Central line dressing changed.
[2019-12-30] MEDS: VANCOMYCIN 1GM/250ML 250 ML IV SCH (18:01)
--- NOTE | 2019-12-30 19:10 | NUR ---
OPENING SHIFT RECEIVED REPORT FROM DAY SHIFT RN. ASSUMED CARE OF PATIENT. PATIENT INTUBATED AND SEDATED WITH NO SIGNS OR SYMPTOMS OF SOB, PAIN OR DISTRESS. POSITIVE COUGH AND GAG. RIGHT FEMORAL TLC AND RIGHT HAND IV - CLEAN/DRY/INTACT. YEPEZ HUNG TO GRAVITY. SEDATION: FENTANYL - 200MCG/HR PROPOFOL - 40MCG/KG/MIN REPOSITIONED FOR COMFORT. BED IN LOWEST POSITION, SIDE RAILS UP 2X. WILL CONTINUE TO MONITOR.
[2019-12-30] MEDS: fentaNYL Drip 2500mCg/250mlNS 250 ML IV SCH (19:53)
[2019-12-31] VITALS (93 sets, daily range): BP systolic 53–161; BP diastolic 41–132
[2019-12-31] MEDS: PROPOFOL 100 ML IV SCH ×2 (01:28→04:46)
[2019-12-31] MEDS: IPRATROPIUM BROM 0.5 MG/2.5ML INH SOL NEB SCH ×7 (02:00→22:13)
[2019-12-31] MEDS: ALBUTEROL SULF 2.5 MG/0.5ML(0.5%) NEB SOLN NEB SCH ×7 (02:00→22:13)
[2019-12-31] MEDS: VANCOMYCIN 1GM/250ML 250 ML IV SCH ×3 (02:09→17:00)
[2019-12-31] MEDS: ACETYLCYSTEINE 10 %(100MG/ML) SOL 4ML NEB SCH ×6 (03:00→22:13)
[2019-12-31 04:36] LABS: Hematocrit 28.4 % (36.0-46.0); Hemoglobin 9.2 g/dL (12.2-16.2); Mean Corpuscular Hemoglobin 30.6 pg (28.0-32.0); Mean Corpuscular Hgb Conc. 32.2 g/dL (32.0-36.0); Mean Corpuscular Volume 94.9 fL (80.0-100.0); Platelet Count (auto) 305 10^3/uL (140-450); Red Cell Distribution Width 14.2 % (11.8-14.3); White Blood Cell 9.5 10^3/uL (4.4-10.8)
[2019-12-31 04:50] LABS: Basophils % (manual) 0 (0.0-2.0); Blast Cells 0; Metamyelocytes % 0; Myelocytes % 0; Promyelocytes % 0; Reactive Lymphocytes 0
[2019-12-31 04:55] LABS: Albumin 2.5 g/dL (3.4-5.0); Calcium 7.7 mg/dL (8.5-10.1); Magnesium 2.4 mg/dL (1.6-2.6); Potassium 3.1 mmol/L (3.5-5.1)
[2019-12-31 04:57] LABS: BUN/Creatinine Ratio 14.9
[2019-12-31 04:59] LABS: Bilirubin, Total 0.2 mg/dL (0.2-1.0); Total Protein 6.3 g/dL (6.4-8.2)
--- NOTE | 2019-12-31 05:23 | NUR ---
MORNING CARE PERFORMED MORNING CARE WITH CHG WIPES AND WASH CLOTHS. FULL LINEN CHANGE AND GOWN CHANGED. ORAL AND YEPEZ CARE PERFORMED. REPOSITIONED FOR COMFORT. SKIN REASSESSED AT THIS TIME. WILL CONTINUE TO MONITOR.
--- NOTE | 2019-12-31 05:37 | NUR ---
HOSPITALIST SPOKE WITH HOSPITALIST, MADE AWARE OF POTASSIUM 3.1. RECEIVED ORDERS FOR 40 MEQ K RIDER IV. NOTED AND CARRIED OUT, WILL CONTINUE TO MONITOR.
[2019-12-31] MEDS ORDERED: POTASSIUM CHL 20MEQ/100ML 100 ML IV ONE (05:41)
[2019-12-31] MEDS: POTASSIUM CHL 20MEQ/100ML 100 ML IV SCH ×2 (05:52→06:48)
[2019-12-31] MEDS: MEROPENEM 1GM IVPB 100 ML IV SCH ×3 (05:53→21:42)
[2019-12-31] MEDS: SALINE 0.65 % NASAL SPRAY 45ML BOTTLE EACHNOSTRI SCH (05:53)
[2019-12-31] MEDS: fentaNYL Drip 2500mCg/250mlNS 250 ML IV SCH (06:00)
[2019-12-31 06:24] LABS: Band Neutrophils % (manual) 2; Eosinophils % (manual) 1 (0-7); Lymphocytes % (manual) 6 (10.0-50.0); Monocytes % (manual) 4 (0-12)
--- NOTE | 2019-12-31 07:37 | NUR ---
END OF SHIFT REPORT GIVEN TO DAY SHIFT RN. CARE ENDORSED.
[2019-12-31] MEDS: MUPIROCIN 2% OINT 15gm or 22gm EACHNOSTRI SCH ×2 (10:00→21:44)
[2019-12-31] MEDS: HYDROCORTISONE SOD SUCC 100 MG/2ML INJ VIAL IV SCH ×2 (10:31→21:41)
[2019-12-31] MEDS: PANTOPRAZOLE 40 MG/10 ML VIAL INJ IV SCH (10:31)
[2019-12-31] MEDS ORDERED: LORATADINE 10 MG TAB PO ONE (11:00)
--- NOTE | 2019-12-31 11:00 | NUR ---
DR. CLEMONS HERE TO SEE PATIENT. SEE MD NOTES AND EMR FOR ANY NEW ORDERS.
[2019-12-31 12:22] LABS: INR 0.99 (0.9-1.15); Partial Thromboplastin Time 24.8 sec (23.64-32.05)
[2019-12-31] MEDS: DexMEDEtomidine 400 MCG in D5W 5% 96 ML IV SCH (12:26)
--- NOTE | 2019-12-31 13:51 | NUR ---
CPAP TRIAL STARTED PER DR. CLEMONS ORDER. PATIENT PLACED ON PRECEDEX WILL CONTINUE TO ASSESS.
--- NOTE | 2019-12-31 13:51 | NUR ---
INITIATED CPAP TRIAL PT OPENS EYES WHEN STIMULATED, BUT NOT ABLE TO FOLLOW SIMPLE COMMANDS. INITIATED CPAP TRIAL ORDERED. PT TOLERATING WELL, NO S/S OF DISTRESS NOTED. SEDATION HAS BEEN TURNED OFF, PT ON PRECEDEX. RN AWARE OF CHANGES. ABG AND WEANING PARAMETERS TO FOLLOW IN ONE HOUR. WILL CONTINUE TO MONITOR.
[2019-12-31] MEDS: NOREPINEPHRINE 8 MG/250ML KIT 250 ML IV SCH (14:56)
--- NOTE | 2019-12-31 15:30 | NUR ---
ABG RESULTS AND WEANING PARAMETERS REPORTED TO DR CLEMONS. RECEIVED EXTUBATION ORDERS.
--- NOTE | 2019-12-31 15:45 | NUR ---
Patient extubated by RT Extubation order received by Dr. CLEMONS, RT at bedside. Patient extubated with no problems, patient tolerated well. Patient placed on 35% cool mist mask. Sats prior to extubation 94%, following extubation 93%. Continue to monitor.
--- NOTE | 2019-12-31 15:45 | NUR ---
EXTUBATED EXTUBATED PT WITH RN AT BEDSIDE. PLACED ON COOL MIST AEROSOL MASK, FIO2 35%. HR 90, RR 30, SPO2 94%. NO STRIDOR NOTED. PT SITTING UP IN BED, TACHYPNEIC BUT NOT IN DISTRESS.
--- NOTE | 2019-12-31 16:11 | NUR ---
SPOKE WITH SPOUSE CLIVE INFORMED HIM THAT PATIENT WAS EXTUBATED. SHE IS CURRENTLY DOING WELL. NO STRIDOR NOTED AT THIS TIME. ALL QUESTIONS ANSWERED.
[2019-12-31] MEDS: MIDAZOLAM DRIP 50 mg/50mL 50 ML IV SCH (16:40)
--- NOTE | 2019-12-31 17:12 | NUR ---
PT REMAINS ON COOL AEROSOL MASK FIO2 35%, TOLERATING WELL. HR 83, RR 18, SPO2 100%. PT SLEEPING COMFORTABLY IN BED, NO DISTRESS NOTED. WILL ENDORSE CARE TO NOC SHIFT RT.
--- NOTE | 2019-12-31 19:45 | NUR ---
OPEN NOTES ASSUMED CARE OF PATIENT. RECEIVED PATIENT AWAKE BUT NOT FOLLOWING COMMANDS. NOT TRACKING, ONLY BLANK STARES NOTED. NO VERBAL OUTPUT. COUGHING,DROOLING-SUCTIONED ORALLY. NON LABORED BREATHING NOTED. ON NC 2L/MIN. FULL ASSESSMENT DONE -REFER INTERVENTIONS. WILL CONTINUE MONITORING.
--- NOTE | 2019-12-31 20:45 | NUR ---
FAMILY CALLED RECEIVED A PHONE CHRISTA FROM PATIENT'S CLIVE. CORRECT PASSWORD GIVEN. UPDATED HIM OF PATIENT'S CONDITION AND POC. ALL QUESTIONS ANSWERED. VERBALIZED UNDERSTANDING
--- NOTE | 2019-12-31 21:00 | NUR ---
ELIMINATION/HYGIENE PATIENT HAD A LARGE LOOSE BROWNISH STOOL. CLEANED PATIENT. LINENS CHANGED. PRESSURE SORES AT THE BUTTOCKS - CLEANED, COVERED WITH OPTIFOAM REPOSITIONED.
--- NOTE | 2019-12-31 21:30 | NUR ---
CALLED PHARMACIST REGARDING VANCOMYCIN DOSE INFORMED HER THAT THE DOSE WAS HELD AT 1700HRS BECAUSE OF THE VANCOMYCIN LEVEL DONE IN THE AM ASKED IF THE 3AM DOSE CAN BE GIVEN OR NEEDS TO BE ADJUSTED PHARMACIST SAID SHE WILL RE CALCULATE AND CALL ME BACK
--- NOTE | 2019-12-31 22:30 | NUR ---
RECEIVED PHONE CALL FROM PHARMACIST REGARDING VANCOMYCIN SHE SAID GIVE THE VANCOMYCIN ORDERED AT 0300HRS
[2020-01-01] VITALS (24 sets, daily range): BP systolic 114–165; BP diastolic 64–83
[2020-01-01] MEDS: DexMEDEtomidine 400 MCG in D5W 5% 96 ML IV SCH (02:15)
[2020-01-01] MEDS: ALBUTEROL SULF 2.5 MG/0.5ML(0.5%) NEB SOLN NEB SCH ×6 (02:16→22:43)
[2020-01-01] MEDS: ACETYLCYSTEINE 10 %(100MG/ML) SOL 4ML NEB SCH ×6 (02:16→22:43)
[2020-01-01] MEDS: IPRATROPIUM BROM 0.5 MG/2.5ML INH SOL NEB SCH ×6 (02:16→22:43)
[2020-01-01] MEDS: VANCOMYCIN 1GM/250ML 250 ML IV SCH (03:04)
--- NOTE | 2020-01-01 04:30 | NUR ---
NEURO STATUS PATIENT OPEN EYES TO CALL NOW, TRACKS AND FOLLOWS SIMPLE COMMANDS. STILL NON VERBAL BUT NOTICE THAT PATIENT TRYING TO TALK. WILL CONTINUE TO MONITOR
[2020-01-01 04:45] LABS: Hematocrit 23.5 % (36.0-46.0); Mean Corpuscular Hemoglobin 30.9 pg (28.0-32.0); Mean Corpuscular Hgb Conc. 33.8 g/dL (32.0-36.0); Mean Corpuscular Volume 91.4 fL (80.0-100.0); Platelet Count (auto) 300 10^3/uL (140-450); Red Blood Cells 2.58 10^6/uL (4.0-5.20); Red Cell Distribution Width 13.8 % (11.8-14.3); White Blood Cell 7.5 10^3/uL (4.4-10.8)
[2020-01-01 04:53] LABS: BUN/Creatinine Ratio 15.3; Calcium 7.6 mg/dL (8.5-10.1); Potassium 3.2 mmol/L (3.5-5.1)
[2020-01-01] MEDS: MEROPENEM 1GM IVPB 100 ML IV SCH (05:09)
[2020-01-01 05:36] LABS: Basophils % (manual) 0 (0.0-2.0); Blast Cells 0; Metamyelocytes % 0; Myelocytes % 0; Promyelocytes % 0; Reactive Lymphocytes 0
[2020-01-01] MEDS ORDERED: POTASSIUM CHL 20MEQ/100ML 100 ML IV ONE (06:30)
[2020-01-01 06:58] LABS: Band Neutrophils % (manual) 4; Eosinophils % (manual) 1 (0-7)
[2020-01-01 06:59] LABS: Lymphocytes % (manual) 7 (10.0-50.0); Monocytes % (manual) 3 (0-12)
--- NOTE | 2020-01-01 07:30 | NUR ---
REPORT REPORT GIVEN TO VALERIA DELANEY
[2020-01-01] MEDS: LORATADINE 10 MG TAB PO SCH (08:59)
[2020-01-01] MEDS: PANTOPRAZOLE 40 MG/10 ML VIAL INJ IV SCH (09:33)
[2020-01-01] MEDS: MUPIROCIN 2% OINT 15gm or 22gm EACHNOSTRI SCH ×2 (09:34→20:38)
[2020-01-01] MEDS: HYDROCORTISONE SOD SUCC 100 MG/2ML INJ VIAL IV SCH (09:34)
--- NOTE | 2020-01-01 09:58 | NUR ---
SWALLOW EVALUATED. PATIENT HAS NATURAL TEETH, UPPER AND LOWER. ABLE TO FOLLOW ONE STEP COMMANDS. PATIENT ABLE TO TOLERATE SOFT DIET TEXTURE WITH THIN LIQUIDS WITH NO OVERT SIGNS OR SYMPTOMS OF ASPIRATION. RECOMMEND FINELY CHOPPED MEATS. NURSING NOTIFIED.
--- NOTE | 2020-01-01 10:40 | NUR ---
RECEIVED PATIENT Received patient into room 265 connected to bedside monitor and assessment done.
--- NOTE | 2020-01-01 10:48 | NUR ---
ICU pt transferred to [facility]LL[facility] transferred to 265 via gurney on rough rib grader and portable 02. All patient personal belongings transferred with patient to receiving floor. Patient care transferred to VERONA SHAW. CLIVE CALLED AND MADE AWARE PATIENT IS BEING TRANSFERRED TO ROOM 265.
--- NOTE | 2020-01-01 10:50 | NUR ---
WOUND CARE Wound care at bedside to assess skin. Patient tolerated well.
--- NOTE | 2020-01-01 10:54 | NUR ---
WOUND CARE NOTE: Wound care in to see patient for reevaluation of wounds that are present on admission. Patient extubated yesterday and now in SDU in Rm. 265. She continue resting on air bed. Patient is awake, appears to be in no pain using [place] Faces pain Scale.Her Zay score is 11. Skin/wound assessment done with the assistance of patient's nurse, VALERIA Chandra. Pressure injuries to patient's L proximal and L distal sacrum continue to improve, display multi pink scar tissue also to medial sacral area. Patient's Rt lower buttocks continue to display Stage 3 pressure injury measuring 4x1cm. Multi small (0.5x0.5cm) open partial thickness wounds noted to upper posterior thighs from moisture associated skin damage.Cleansed patient's sacral, buttocks, applied Thera honey gel to open wounds to Rt lower buttocks and covered with Opti foam gentle dressing. Z Guard cream applied to posterior thighs. New photograph of patient's wounds are taken for reference. Patient's L great toe avulsed toe nail with dry scab, area is clean and dry, left open to air. Patient tolerated, repositioned patient for comfort facing her L side, redistributed pressure points with pillows. RECOMMENDATION: Continuation of all wound care orders prescribed by MD, continue with skin/wound plan of care, continue monitoring by wound care while patient is hospitalized. Addendum: 01/01/20 at 1624 by Loreta Miller RN Amended: Links added.
[2020-01-01] MEDS: ERTAPENEM SOD INJ 1 GM in SODIUM CHL 0.9% 50 ML IV SCH (14:25)
[2020-01-01] MEDS: CLINDAMYCIN HCL 150 MG CAP PO SCH ×2 (14:30→20:43)
--- NOTE | 2020-01-01 15:10 | NUR ---
PICC LINE Picc line nurse Virginia RN paged to notify of order for MIDLINE placement.
--- NOTE | 2020-01-01 15:30 | NUR ---
PICC LINE NURSE/MD Called and spoke to Virginia SHAW regarding MIDLINE placement states " Will not be able to place MIDLINE today." Dr. Coyne called and spoke to her regarding unable to place MIDLINE today MD states " Okay to have MIDLINE place tomorrow."
--- NOTE | 2020-01-01 16:03 | NUR ---
D/C Planning Per SS consult for home health service for byrant care, wound care and IV abx. Faxed clinical information to [facility] and [facility]. [facility] and they will resume service for patient within 24hrs upon d/c day Obtain authorization from [facility] [id number]. [employer] Feeder Aranza will complete IV abx.
--- NOTE | 2020-01-01 16:28 | NUR ---
Nutrition Followup Notes Wt: 130.0 kg Pt was awake, alert, in the process of being transported to [facility] when rounded this morning. Per RN pt will be placed with a new diet order today, noted pt advanced to a soft diet. Will continue to monitor PO status, skin status, pertinent labs and weight trends. Will f/u in 3-5 days. Est Energy needs ABW 113 [id number] kcals (17-20 kcal/kgBW), Est Protein needs: 113-123 gms/day (1.0-1.1 gm/kgBW). Will continue to monitor and reassess prn. LAB: NA 148 H, POT 3.2 L, CL 119 H, CA 7.6 L, ALB 2.5 L. GI: Pt had 1 BM today per RN doc BS: 11 high risk Please refer to wound assessment report for full details. PES: Altered nutrition related lab values r.t current chronic medical condition aeb elev RFT hyperglycemia Decreased nutrient needs r/t adiposity aeb pt`s high BMI of 50.2 kgm2 Impaired swallowing r.t current medical condition aeb pt`s intubated sedated with order of NPO Comments Will continue to monitor PO status, skin status, pertinent labs and weight trends. Will f/u in 3-5 days. 1) advance diet as medically feasible. (RESOLVED) 2) consider EN support with Glucerna @ 45 ml/hr if pt continues to be NPO on current rate of propofol. 3) refer to CDE on DC. 4) consider MVI/C bid. 5) consider prostat 1 packet bid. 6) continue current plan of care
--- NOTE | 2020-01-01 16:45 | NUR ---
Midline Placement: Patient educated on need for midline placement. All risks and benefits explained and all questions and concerns addresses prior to procedure. 18g/10cm midline inserted via right brachial vein using Ultrasound. Sterile technique utilized. Blood return obtained from lumen and flushed easily with NS using proper technique. Midline secured with saline lock; biodisc and occlusive dressing applied. Primary RN notified. Midline lot #[id number]
--- NOTE | 2020-01-01 16:45 | NUR ---
PICC LINE PICC line nurse Virginia RN at bedside to place MIDLINE. MIDLINE 18g to the right AC placed. Patient tolerated well.
--- NOTE | 2020-01-01 18:39 | NUR ---
Respiratory note: AT BEDSIDE FOR MED BRANDON BOWEN.
--- NOTE | 2020-01-01 20:00 | NUR ---
SHIFT OPENING NOTE RECEIVED PATIENT AWAKE, ALERT AND ORIENTED X3. DELAYED. ANSWERS YES AND NO QUESTIONS. VERY WEAK. NO SOB OR DISTRESS NOTED. ON 2L N/C POX 100%. REPOSITIONED FOR COMFORT. YEPEZ CATH DRAINING YELLOW URINE WITH SEDIMENT TO GRAVITY. RIGHT FEMORAL TLC SALINE LOCKED. RIGHT UPPER ARM MIDLINE TKO. PHYSICAL ASSESSMENT COMPLETED, SEE INTERVENTIONS. INSTRUCTED ON POC AND TO CALL FOR ASSIST NEEDED. BED IS IN THE LOWEST POSITION WITH SIDE RAILS UP X2, CALL LIGHT IS WITHIN REACH.
[2020-01-01] MEDS: predniSONE 5 MG TAB PO SCH (20:39)
[2020-01-01] MEDS: ACETAMINOPHEN 650 mg PER 20 mL UD GT PRN (20:44)
[2020-01-02] VITALS (10 sets, daily range): BP systolic 101–150; BP diastolic 58–85
--- NOTE | 2020-01-02 00:25 | NUR ---
ROUNDS PATIENT QUIETLY LAYING IN BED SLEEPING. NO SOB, DISTRESS OR PAIN NOTED. WILL CONTINUE TO CLOSELY MONITOR.
[2020-01-02] MEDS: ALBUTEROL SULF 2.5 MG/0.5ML(0.5%) NEB SOLN NEB SCH ×6 (02:13→22:34)
[2020-01-02] MEDS: ACETYLCYSTEINE 10 %(100MG/ML) SOL 4ML NEB SCH ×6 (02:13→22:34)
[2020-01-02] MEDS: IPRATROPIUM BROM 0.5 MG/2.5ML INH SOL NEB SCH ×6 (02:13→22:34)
[2020-01-02] MEDS: ACETAMINOPHEN 650 mg PER 20 mL UD GT PRN (03:45)
[2020-01-02] MEDS ORDERED: LORazepam 0.5 MG TAB PO ONE (05:45)
--- NOTE | 2020-01-02 05:45 | NUR ---
REMOVED TLC PER MD ORDER FROM RIGHT FEMORAL SITE. PATIENT BEGAN BLEEDING A LOT AND STARTED DEVELOPING HEMATOMA, PRESSURE HELD FOR 45 MIN, DRESSING APPLIED THEN ICE PACK AND SAND BAG PLACED ON TOP OF FEMORAL SITE. PATIENT IS VERY ANXIOUS AND HEART RATE SHOT UP TO THE 160-170S. UNABLE TO KEEP PATIENT CALM. OBTAINED ORDERS FROM HOSPITALIST KRISTINE RODRÍGUEZ FOR ATIVAN 0.5 MG PO ONCE. WILL CARRY OUT ORDERS. PATIENT REMAINS MOVING LOWER EXTREMITIES DESPITE EDUCATION. WILL CONTINUE TO MONITOR SITE FOR ADDITIONAL BLEEDING.
--- NOTE | 2020-01-02 05:46 | NUR ---
CATH TIP SENT TO LAB VIA BULLET
[2020-01-02] MEDS ORDERED: LORazepam 0.5 MG TAB ONE (05:47)
--- NOTE | 2020-01-02 06:10 | NUR ---
MORNING HYGIENE CARE FULL BED BATH PERFORMED WITH CHG WIPES AND WARM SOAPY WASH CLOTHES. GOWN CHANGED. FULL LINEN CHANGED. ICE PACK AND SANDBAG REMAIN ON RIGHT FEMORAL SITE. PULSES PALPABLE TO RIGHT LOWER EXTREMITY.
[2020-01-02] MEDS: CLINDAMYCIN HCL 150 MG CAP PO SCH ×3 (06:16→21:03)
--- NOTE | 2020-01-02 07:20 | NUR ---
END OF SHIFT REPORT GIVEN AND CARE ENDORSED TO ORIANA SHAW. PATIENT LAYING IN BED. HR REMAINS ELEVATED IN THE 130S. BP 100/71, RIGHT GROIN AREA SOFTER. ICE PACK AND SANDBAGS REMAIN IN PLACE. PULSES TO LOWER RIGHT EXTREMITY INTACT.
[2020-01-02 09:24] LABS: Hematocrit 21.6 % (36.0-46.0); Red Cell Distribution Width 14.3 % (11.8-14.3)
[2020-01-02 09:28] LABS: Mean Corpuscular Hemoglobin 29.7 pg (28.0-32.0); Mean Corpuscular Volume 92.7 fL (80.0-100.0); Platelet Count (auto) 402 10^3/uL (140-450); Red Blood Cells 2.33 10^6/uL (4.0-5.20); White Blood Cell 14.7 10^3/uL (4.4-10.8)
[2020-01-02 09:44] LABS: Hemoglobin 6.9 g/dL (12.2-16.2)
--- NOTE | 2020-01-02 10:01 | NUR ---
Family updated on pt status/spoke with hospitalist Family of TETE POLLOCK updated on patient's status and condition after password clafication. All questions and concerns addressed. Saqib patient's spouse verbalized understanding. Dr. Coyne notified of morning labs, vs and reported bleeding with hematoma when removing femoral line by sharyn fisher RN. Dr. Coyne will order type and screen.
[2020-01-02] MEDS: LORATADINE 10 MG TAB PO SCH (10:43)
[2020-01-02] MEDS: PANTOPRAZOLE 40 MG TAB PO SCH (10:43)
[2020-01-02] MEDS: predniSONE 5 MG TAB PO SCH ×2 (10:43→21:02)
[2020-01-02] MEDS: MUPIROCIN 2% OINT 15gm or 22gm EACHNOSTRI SCH ×2 (10:44→21:02)
[2020-01-02] MEDS: ERTAPENEM SOD INJ 1 GM in SODIUM CHL 0.9% 50 ML IV SCH (10:44)
[2020-01-02 11:11] LABS: Albumin 2.1 g/dL (3.4-5.0); Calcium 7.7 mg/dL (8.5-10.1)
[2020-01-02 11:15] LABS: Bilirubin, Total 0.3 mg/dL (0.2-1.0)
[2020-01-02 11:20] LABS: Potassium 2.8 mmol/L (3.5-5.1)
[2020-01-02] MEDS ORDERED: POTASSIUM CHLORIDE 40 MEQ, LIDOCAINE 1% (LOCAL ANESTH.) 4 ML in SODIUM CHL 0.9% 100 ML IV ONE (12:00)
[2020-01-02] MEDS ORDERED: POTASSIUM CHL 20 Meq TABLET PO ONE (12:00)
[2020-01-02] MEDS ORDERED: D5W 5% 1,000 ML IV ONE (12:15)
[2020-01-02 13:18] LABS: Basophils % (manual) 0 (0.0-2.0); Blast Cells 0; Metamyelocytes % 0; Promyelocytes % 0; Reactive Lymphocytes 0
[2020-01-02 13:22] LABS: Band Neutrophils % (manual) 3; Eosinophils % (manual) 1 (0-7); Lymphocytes % (manual) 12 (10.0-50.0); Monocytes % (manual) 5 (0-12); Myelocytes % 1
--- NOTE | 2020-01-02 14:21 | NUR ---
ONE UNIT PRBC TRANSFUSING VSS AND DOCUMENTED, DISCUSSED S/S OF TRANSFUSION REACTION WITH PATIENT, PATIENT NOTED TO BE FATIGUED BUT VERBALIZED UNDERSTANDING. WILL CONTINUE TO MONITOR FOR S/S OF TRANSFUSION REACTION.
--- NOTE | 2020-01-02 14:34 | NUR ---
15 MIN TRANSFUSION REASSESSMENT VSS AND DOCUMENTED, NO S/S NOTED OR REPORTED BY PATIENT OF TRANSFUSION REACTION. WILL CONTINUE TO MONITOR.
--- NOTE | 2020-01-02 16:32 | NUR ---
TRANSFUSION COMPLETE VSS AND DOCUMENTED, PATIENT DENIES PAIN OR DISCOMFORT, NO S/S OF TRANSFUSION REACTION NOTED.
--- NOTE | 2020-01-02 19:12 | NUR ---
RT NOTE PT WAS SEEN BY RT FOR HHN TX. PT TOLERATES WELL VIA MASK. NO ADVERSE REACTION NOTED. CONT ORDERED Addendum: 01/02/20 at 1913 by Lita Blum RT Amended: Links added.
--- NOTE | 2020-01-02 20:00 | NUR ---
SHIFT OPENING NOTE RECEIVED PATIENT AWAKE, ALERT AND ORIENTED X3. DELAYED. ANSWERS YES AND NO QUESTIONS. VERY WEAK. NO SOB OR DISTRESS NOTED. ON ON ROOM AIR WITH POX 99%. REPOSITIONED FOR COMFORT. YEPEZ CATH DRAINING YELLOW URINE WITH SEDIMENT TO GRAVITY. RIGHT FEMORAL DRESSING IS C/D/I. SITE IS SOFT WITH ECCHYMOSIS. NO SIGNS OF NEW BLEEDING. RIGHT UPPER ARM MIDLINE INFUSING D5W AT 50 ML/H. PHYSICAL ASSESSMENT COMPLETED, SEE INTERVENTIONS. INSTRUCTED ON POC AND TO CALL FOR ASSIST NEEDED. BED IS IN THE LOWEST POSITION WITH SIDE RAILS UP X2, CALL LIGHT IS WITHIN REACH.
--- NOTE | 2020-01-02 22:32 | NUR ---
RT NOTE PT WAS SEEN BY RT FOR HHN TX. PT TOLERATES WELL VIA MASK. NO ADVERSE REACTION NOTED. CONT ORDERED Addendum: 01/02/20 at 2350 by Lita Blum RT Amended: Links added.
[2020-01-03] VITALS (7 sets, daily range): BP systolic 83–155; BP diastolic 44–83
[2020-01-03] MEDS: IPRATROPIUM BROM 0.5 MG/2.5ML INH SOL NEB SCH ×6 (02:23→22:05)
[2020-01-03] MEDS: ALBUTEROL SULF 2.5 MG/0.5ML(0.5%) NEB SOLN NEB SCH ×6 (02:23→22:05)
[2020-01-03] MEDS: ACETYLCYSTEINE 10 %(100MG/ML) SOL 4ML NEB SCH ×6 (02:25→22:05)
--- NOTE | 2020-01-03 02:32 | NUR ---
RT NOTE PT WAS SEEN BY RT FOR HHN TX. PT TOLERATES WELL VIA MASK. NO ADVERSE REACTION NOTED. CONT ORDERED Addendum: 01/03/20 at 0233 by Lita Blum RT Amended: Links added.
[2020-01-03 04:06] LABS: Red Cell Distribution Width 14.4 % (11.8-14.3)
[2020-01-03 04:09] LABS: Hematocrit 24.8 % (36.0-46.0); Hemoglobin 8.1 g/dL (12.2-16.2); Mean Corpuscular Hemoglobin 31.2 pg (28.0-32.0); Mean Corpuscular Hgb Conc. 32.6 g/dL (32.0-36.0); Mean Corpuscular Volume 95.8 fL (80.0-100.0); Platelet Count (auto) 296 10^3/uL (140-450); Red Blood Cells 2.59 10^6/uL (4.0-5.20); White Blood Cell 10.8 10^3/uL (4.4-10.8)
[2020-01-03 04:18] LABS: BUN/Creatinine Ratio 16.7; Calcium 7.8 mg/dL (8.5-10.1); Potassium 4.1 mmol/L (3.5-5.1)
[2020-01-03 04:32] LABS: Basophils % (manual) 0 (0.0-2.0); Blast Cells 0; Eosinophils % (manual) 0 (0-7); Promyelocytes % 0; Reactive Lymphocytes 0
--- NOTE | 2020-01-03 05:00 | NUR ---
MORNING HYGIENE CARE FULL BED BATH PERFORMED WITH CHG WIPES AND WARM SOAPY WASH CLOTHES. GOWN CHANGED. FULL LINEN CHANGED. PATIENT TOLERATED IT WELL.
[2020-01-03] MEDS: CLINDAMYCIN HCL 150 MG CAP PO SCH ×3 (05:14→21:18)
[2020-01-03 06:55] LABS: Band Neutrophils % (manual) 6
[2020-01-03 06:56] LABS: Lymphocytes % (manual) 14 (10.0-50.0); Monocytes % (manual) 4 (0-12); Myelocytes % 1
[2020-01-03 07:02] LABS: Metamyelocytes % 0
--- NOTE | 2020-01-03 07:30 | NUR ---
END OF SHIFT REPORT GIVEN AND CARE ENDORSED TO ALLISON SHAW.
[2020-01-03] MEDS: predniSONE 5 MG TAB PO SCH ×2 (09:48→21:18)
[2020-01-03] MEDS: LORATADINE 10 MG TAB PO SCH (09:48)
[2020-01-03] MEDS: PANTOPRAZOLE 40 MG TAB PO SCH (09:48)
[2020-01-03] MEDS: MUPIROCIN 2% OINT 15gm or 22gm EACHNOSTRI SCH (09:48)
[2020-01-03] MEDS: ERTAPENEM SOD INJ 1 GM in SODIUM CHL 0.9% 50 ML IV SCH (09:48)
--- NOTE | 2020-01-03 10:45 | NUR ---
DR. CLEMONS AT BEDSIDE: TELE ORDERS GIVEN MD UPDATED ON PT'S CURRENT STATUS, LABS AND POC FOR TODAY. ORDERS GIVEN TO DOWNGRADE PATIENT TO TELE STATUS. CONTINUE CARE.
[2020-01-03] MEDS: ACETAMINOPHEN 650 mg PER 20 mL UD GT PRN ×2 (11:41→20:30)
--- NOTE | 2020-01-03 11:46 | NUR ---
TEMP 100.3: PRN TYLENOL GIVEN COOLING MEASURES APPLIED. REMOVED BLANKETS FROM PATIENT. GIVEN PRN MEDICATION. COOL TOWEL APPLIED TO PATIENT'S FOREHEAD. CONTINUE CARE.
[2020-01-03] MEDS: Glucerna Carbsteady SHAKE Vanilla 8oz PO SCH ×2 (12:00→18:00)
--- NOTE | 2020-01-03 13:29 | NUR ---
REASSESS TEMP. 98.8 ORALLY WILL CONTINUE TO MONITOR. NO PAIN AT THIS TIME.
--- NOTE | 2020-01-03 14:00 | NUR ---
HOLD P.T. UNTIL PT IS TRANSFERRED TO [facility].
--- NOTE | 2020-01-03 19:10 | NUR ---
SHIFT OPENING NOTE RECEIVED PATIENT AWAKE, ORIENTED X3. DELAYED. ANSWERS YES AND NO QUESTIONS. NO SOB OR DISTRESS NOTED. ON 2L NC STATING >95% SPO2 ON BEDSIDE MONITOR. REPOSITIONED FOR COMFORT. YEPEZ CATH DRAINING TO GRAVITY. RIGHT FEMORAL DRESSING IS C/D/I. SITE IS SOFT WITH ECCHYMOSIS, MD AWARE. NO SIGNS OF NEW BLEEDING. RIGHT UPPER ARM MIDLINE PATENT, CDI. PHYSICAL ASSESSMENT COMPLETED, SEE INTERVENTIONS. INSTRUCTED ON POC AND TO CALL FOR ASSIST NEEDED. BED IS IN THE LOWEST POSITION WITH SIDE RAILS UP X2, CALL LIGHT IS WITHIN REACH. ALL FALL AND SAFETY PRECAUTIONS IN PLACE.
--- NOTE | 2020-01-03 22:00 | NUR ---
Telemetry PHILLTETE TRANSFERRED TO Telemetry unit 203 TO RN SAURAV. Patient oriented to primary RN, unit, room, bed, and unit policies regarding patient care and visiting hours. Patient now on continuous telemetry monitoring, tele box # 20. Patient placed on bedside oxygen, weighed by bedscale and encouraged to call if they need something. All questions and concerns addressed, patient verbalized understanding
--- NOTE | 2020-01-03 22:05 | NUR ---
RECEIVED PATIENT FROM ETHAN SHAW FROM [facility]. PATIENT RESTING IN BED. NO S/S OF DISTRESS NOTED. DENIED PAIN FOR NOW. PATIENT ON TELE BOX # 28, INITIAL READING SR 84. PATIENT ON OXYGEN 2L/NC WITH O2 SAT 100%. ALL DRESSINGS C/D/I. YEPEZ CATH IN PLACE DRAINING TO GRAVITY. SPECIAL MATTRESS BED IN LOWEST POSITION WITH SIDE RAILS UP X 2. CALL [facility] WITHIN REACH. ALARM ON. CONTINUE TO MONITOR FOR CHANGES Q1H AND PRN.
--- NOTE | 2020-01-04 00:20 | NUR ---
REPOSITIONED PATIENT. PATIENT TOLERATED WELL. CONTINUE TO MONITOR.
[2020-01-04] MEDS: ALBUTEROL SULF 2.5 MG/0.5ML(0.5%) NEB SOLN NEB SCH ×5 (02:00→23:56)
[2020-01-04] MEDS: IPRATROPIUM BROM 0.5 MG/2.5ML INH SOL NEB SCH ×5 (02:00→23:56)
[2020-01-04] MEDS: ACETYLCYSTEINE 10 %(100MG/ML) SOL 4ML NEB SCH ×3 (02:00→10:50)
--- NOTE | 2020-01-04 02:22 | NUR ---
REPOSITIONED PATIENT. PATIENT TOLERATED WELL. CONTINUE TO MONITOR.
--- NOTE | 2020-01-04 04:10 | NUR ---
REPOSITIONED PATIENT. PATIENT TOLERATED WELL. CONTINUE TO MONITOR.
[2020-01-04 05:15] VITALS: BP 124/79
[2020-01-04] MEDS: CLINDAMYCIN HCL 150 MG CAP PO SCH ×3 (05:45→22:12)
--- NOTE | 2020-01-04 06:21 | NUR ---
REPOSITIONED PATIENT. PATIENT TOLERATED WELL. CONTINUE TO MONITOR.
--- NOTE | 2020-01-04 08:00 | NUR ---
ASSESSMENT NOTE PT IS ALERT ORIENTED TO SELF AND PLACE, HER NAME AND DATE, CONFUSED ON TIMES AND FORGETFUL, RESTING IN BED COMFORTABLY IN LOW GRAJEDA POSITION IN A SPECIALTY BED, GENERALIS WEAKNESS NOTED, ABLE TO VERBALIS HER NEEDS, MODERATE ASSIT GIVEN TO PT IN HER MEALS, DEPENDANT IN REPOSITIONING EVERY 2 HOURS, IN CONTACT ISOLATION FOR ESBL WOUND AND BLOOD, NEXT TO THE NURSING STATION, CALL LIGHT WITHIN REACH, CHECK ON PT AT ALL TIMES
--- NOTE | 2020-01-04 09:00 | NUR ---
BREAKFAST ASSISTED PT WITH HER MEALS
[2020-01-04 09:29] VITALS: BP 127/98
[2020-01-04] MEDS: predniSONE 5 MG TAB PO SCH ×2 (09:39→22:12)
[2020-01-04] MEDS: PANTOPRAZOLE 40 MG TAB PO SCH (09:39)
[2020-01-04] MEDS: LORATADINE 10 MG TAB PO SCH (09:39)
[2020-01-04] MEDS: ERTAPENEM SOD INJ 1 GM in SODIUM CHL 0.9% 50 ML IV SCH (09:42)
[2020-01-04] MEDS: Glucerna Carbsteady SHAKE Vanilla 8oz PO SCH ×3 (09:42→18:28)
--- NOTE | 2020-01-04 10:46 | NUR ---
Nutrition Followup Notes Wt: 129.6kg Pt was in isolation per RN note. Pt diet advanced to soft diet. Pt po intake is inadequate aeb pt with 0% po intake 01/01-01/02, pt consumed 50% of breakfast 01/03 per Rn nutrition note. Pt with Glucerna shakes TID, as pt po intake is inadequate, will continue to monitor po intake. Est Energy needs ABW 113 [id number] kcals (17-20 kcal/kgBW), Est Protein needs: 113-123 gms/day (1.0-1.1 gm/kgBW). Will continue to monitor and reassess prn. LAB: Ca 7.8L, Alb 2.1L GI: Pt had 1 BM 01/03 per RN doc BS: 11 high risk Please refer to wound assessment report for full details. PES: Altered nutrition related lab values r.t current chronic medical condition aeb elev RFT hyperglycemia Decreased nutrient needs r/t adiposity aeb pt`s high BMI of 50.2 kgm2 Partially resolved, patient diet advanced to soft diet: Impaired swallowing r.t current medical condition aeb pt`s intubated sedated with order of NPO Comments Will continue to monitor PO status, skin status, pertinent labs and weight trends. Will f/u in 3-5 days. 1) advance diet as medically feasible. (RESOLVED) 2) refer to CDE on DC. 3) consider MVI/C bid. 4) consider prostat 1 packet bid. 5) continue current plan of care
[2020-01-04] MEDS: ACETAMINOPHEN 650 mg PER 20 mL UD GT PRN (11:13)
--- NOTE | 2020-01-04 13:00 | NUR ---
LUNCH ASSISTED PT WITH HER MEALS
[2020-01-04 13:30] VITALS: BP 97/58
--- NOTE | 2020-01-04 14:00 | NUR ---
PT REPOSITION EVERY 2 HOURS AT ALL TIMES, KEPT CLEAN AND DRY
--- NOTE | 2020-01-04 17:00 | NUR ---
WOUND CARE CLEANSE RT UPPER INNER THIGH SMALL PRESSURE ULCER WITH NS, PAT IT TO DRY, THRA HONEY APPLIED, COVERED WITH OPTIFOAM, PT TOLERATED WELL
[2020-01-04 17:04] VITALS: BP 97/52
--- NOTE | 2020-01-04 17:46 | NUR ---
DR CLEMONS IS HERE, MADE AWARE THAT PT HAS BODY ACHES, NEW ORDERS OF NORCO OBTAIN
[2020-01-04] MEDS: HYDROcodone-ACET 5/325MG TAB PO PRN (18:28)
--- NOTE | 2020-01-04 18:48 | NUR ---
BM SMALL LOSE BM NOTED, KEPT PT CLEAN AND DRY
--- NOTE | 2020-01-04 18:49 | NUR ---
PT CONTINUE STABLE, CONTINUE MONITORING
--- NOTE | 2020-01-04 20:00 | NUR ---
RECEIVED PATIENT FROM DAY SHIFT RN. PATIENT RESTING IN BED. NO S/S OF DISTRESS NOTED. DENIED PAIN FOR NOW. REPOSITIONED PATIENT. PATIENT TOLERATED WELL. DRESSING C/D/I. YEPEZ CATH IN PLACE DRAINING TO GRAVITY. REORIENTED PATIENT TIME, PLACE, AND SITUATION. ENCOURAGED PATIENT TO CALL FOR MARKET DEVELOPMENT TRAINER IF NEEDED. SPECIAL MATTRESS BED IN LOWEST POSITION WITH SIDE RAILS UP X 2. CALL [facility] WITHIN REACH. ALARM ON. CONTINUE TO MONITOR FOR CHANGES Q1H AND PRN.
[2020-01-04 22:00] VITALS: BP 118/70
--- NOTE | 2020-01-04 22:25 | NUR ---
SCHEDULED ORAL MEDICATION GIVEN ORDERED. PATIENT SWALLOWED WELL. NO S/S OF ASPIRATION NOTED. CONTINUE TO MONITOR.
[2020-01-05] MEDS: HYDROcodone-ACET 5/325MG TAB PO PRN ×3 (00:50→11:07)
--- NOTE | 2020-01-05 00:50 | NUR ---
PATIENT C/O PAIN @ 02/10. MEDICATED PATIENT ORDERED. CONTINUE TO MONITOR.
--- NOTE | 2020-01-05 01:40 | NUR ---
REASSESSED PAIN. PATIENT SLEEPING. NO S/S OF PAIN NOTED. CONTINUE CARE.
--- NOTE | 2020-01-05 02:21 | NUR ---
REPOSITIONED PATIENT. PATIENT TOLERATED WELL. CONTINUE CARE.
[2020-01-05 05:00] VITALS: BP 130/78
[2020-01-05] MEDS: CLINDAMYCIN HCL 150 MG CAP PO SCH ×3 (06:03→21:34)
--- NOTE | 2020-01-05 06:04 | NUR ---
PATIENT C/O PAIN @ 02/10. MEDICATED PATIENT ORDERED. CONTINUE TO MONITOR.
--- NOTE | 2020-01-05 06:15 | NUR ---
REPOSITIONED PATIENT. PATIENT TOLERATED WELL. CONTINUE CARE.
[2020-01-05] MEDS: Glucerna Carbsteady SHAKE Vanilla 8oz PO SCH ×3 (08:00→18:00)
--- NOTE | 2020-01-05 08:00 | NUR ---
ASSESSMENT NOTE PT IS ALERT ORIENTED TO SELF AND PLACE, HER NAME AND DATE, CONFUSED ON TIMES AND FORGETFUL, RESTING IN BED COMFORTABLY IN LOW GRAJEDA POSITION IN A SPECIALTY BED, GENERALIS WEAKNESS NOTED, ABLE TO VERBALIS HER NEEDS, MODERATE ASSIST GIVEN TO PT IN HER MEALS, DEPENDANT IN REPOSITIONING EVERY 2 HOURS, YEPEZ CATHETER TO GRAVITY, URINE IS YELLOW, IN CONTACT ISOLATION FOR ESBL WOUND AND BLOOD, NEXT TO THE NURSING STATION, CALL LIGHT WITHIN REACH, CHECK ON PT AT ALL TIMES
[2020-01-05] MEDS: LORATADINE 10 MG TAB PO SCH (08:58)
[2020-01-05] MEDS: predniSONE 5 MG TAB PO SCH ×2 (08:59→21:34)
[2020-01-05] MEDS: ERTAPENEM SOD INJ 1 GM in SODIUM CHL 0.9% 50 ML IV SCH (08:59)
[2020-01-05] MEDS: PANTOPRAZOLE 40 MG TAB PO SCH (08:59)
[2020-01-05 09:00] VITALS: BP 130/75
--- NOTE | 2020-01-05 09:00 | NUR ---
BREAKFAST PT ATE BUTLER ONLY, REFUSED THE REST OF THE BREAKFAST TRAY, ENCOURAGE PT TO DRINK HER ENSURE
--- NOTE | 2020-01-05 09:30 | NUR ---
FAMILY SPOKE TO CLIVE, PATIENT'S , MADE AWARE TO BRING TO HIS HER FAVORITE FOOD, PER DR CLEMONS RECOMMENDATIONS
[2020-01-05] MEDS: ALBUTEROL SULF 2.5 MG/0.5ML(0.5%) NEB SOLN NEB SCH ×3 (09:45→19:05)
[2020-01-05] MEDS: IPRATROPIUM BROM 0.5 MG/2.5ML INH SOL NEB SCH ×3 (09:45→19:05)
[2020-01-05 13:00] VITALS: BP 112/63
--- NOTE | 2020-01-05 14:00 | NUR ---
BM PT HAS BM, KEPT DRY AND CLEAN
[2020-01-05] MEDS: HYDROcodone-ACET 10/325MG TAB PO PRN ×3 (14:10→23:26)
[2020-01-05 16:57] VITALS: BP 120/69
--- NOTE | 2020-01-05 18:27 | NUR ---
PT CONTINUE STABLE, CONTINUE MONITORING
--- NOTE | 2020-01-05 19:05 | NUR ---
Respiratory note: SCHEDULED MED NEB TX NOT GIVEN, PT WAS ON A BED [place] AT THIS TIME AND DID NOT WANT TX. NO RESP DISTRESS NOTED.
--- NOTE | 2020-01-05 19:28 | NUR ---
BM PT HAS LARGE BM, KEPT CLEAN AND DRY, CONTINUE MONITORING
--- NOTE | 2020-01-05 19:30 | NUR ---
OPENING SHIFT NOTE PT IS SITTING UP IN BED WITH EYES OPEN AND RSP RATE IS EVEN AND UNLABORED. NO S/S OF ANY DISTRESS NOTED. POC DISCUSSED WITH PT AND PT VERBALIZES UNDERSTANDING. PT ON AIR MATTRESS/ SPECIALTY BED. BED IS LOW, WHEELS ARE LOCKED, AND CALL LIGHT IS WITH IN REACH.
[2020-01-05 20:03] VITALS: BP 120/69
[2020-01-05 22:00] VITALS: BP 135/80
[2020-01-06] MEDS: FREE WATER PO SCH
[2020-01-06] MEDS: IPRATROPIUM BROM 0.5 MG/2.5ML INH SOL NEB SCH ×5 (00:17→18:00)
[2020-01-06] MEDS: ALBUTEROL SULF 2.5 MG/0.5ML(0.5%) NEB SOLN NEB SCH ×5 (00:17→18:00)
--- NOTE | 2020-01-06 00:17 | NUR ---
Respiratory note: SCHEDULED MED NEB TX NOT GIVEN. PT REFUSED TX AT THIS TIME. NO RESP DISTRESS NOTED.
[2020-01-06] MEDS: HYDROcodone-ACET 10/325MG TAB PO PRN ×4 (03:24→22:58)
[2020-01-06 05:00] VITALS: BP 135/78
[2020-01-06] MEDS: CLINDAMYCIN HCL 150 MG CAP PO SCH ×3 (06:11→23:02)
[2020-01-06] MEDS: Glucerna Carbsteady SHAKE Vanilla 8oz PO SCH ×3 (08:00→18:00)
[2020-01-06 09:00] VITALS: BP 131/74
[2020-01-06] MEDS: ERTAPENEM SOD INJ 1 GM in SODIUM CHL 0.9% 50 ML IV SCH (09:31)
[2020-01-06] MEDS: LORATADINE 10 MG TAB PO SCH (09:31)
[2020-01-06] MEDS: PANTOPRAZOLE 40 MG TAB PO SCH (09:31)
[2020-01-06] MEDS: predniSONE 5 MG TAB PO SCH ×2 (09:31→23:01)
[2020-01-06 11:00] LABS: Hemoglobin 7.7 g/dL (12.2-16.2); White Blood Cell 7.4 10^3/uL (4.4-10.8)
[2020-01-06 11:02] LABS: Mean Corpuscular Hgb Conc. 31.9 g/dL (32.0-36.0); Mean Corpuscular Volume 97.2 fL (80.0-100.0); Platelet Count (auto) 302 10^3/uL (140-450); Red Blood Cells 2.47 10^6/uL (4.0-5.20); Red Cell Distribution Width 15.4 % (11.8-14.3)
[2020-01-06 11:04] LABS: Basophils % (manual) 0 (0.0-2.0); Blast Cells 0; Metamyelocytes % 0; Promyelocytes % 0; Reactive Lymphocytes 0
[2020-01-06 11:18] LABS: BUN/Creatinine Ratio 9.8; Calcium 7.8 mg/dL (8.5-10.1); Potassium 3.4 mmol/L (3.5-5.1)
[2020-01-06 12:47] LABS: Eosinophils % (manual) 1 (0-7); Lymphocytes % (manual) 11 (10.0-50.0); Monocytes % (manual) 2 (0-12); Myelocytes % 2
[2020-01-06 12:48] LABS: Band Neutrophils % (manual) 2
[2020-01-06 13:00] VITALS: BP 123/67
[2020-01-06] MEDS ORDERED: POTASSIUM CHL 20 Meq TABLET PO ONE (13:15)
[2020-01-06] MEDS ORDERED: SODIUM FERR GLUC 62.5MG/5ML 125 MG in SODIUM CHL 0.9% 100 ML IV ONE (13:15)
--- NOTE | 2020-01-06 15:00 | NUR ---
Pt refused PT tx despite encouragement provided by this TREATING ENGINEER. RN attempted to encourage pt to participate in PT tx, pt reiterated her refusal. Addendum: 01/06/20 at 1524 by Don Zepeda TREATING ENGINEER Amended: Links added.
--- NOTE | 2020-01-06 15:00 | NUR ---
PHYSICAL THERAPY AT BED SIDE, PT FIRMLY REFUSED
[2020-01-06 17:00] VITALS: BP 114/58
--- NOTE | 2020-01-06 18:10 | NUR ---
Respiratory note: PT REFUSED SCHED MED NEB TX AT THIS TIME. PT IS CURRENTLY ON ROOM AIR: HR 77, RR 18, SPO2 99%. PT SHOWS NO S/S OF SOB OR RESPIRATORY DISTRESS. WILL CONTINUE TO MONITOR.
--- NOTE | 2020-01-06 18:48 | NUR ---
PT CONTINUE STABLE, CONTINUE MONITORING
[2020-01-07 00:11] VITALS: BP 127/77
[2020-01-07] MEDS: IPRATROPIUM BROM 0.5 MG/2.5ML INH SOL NEB SCH ×5 (00:16→19:08)
[2020-01-07] MEDS: ALBUTEROL SULF 2.5 MG/0.5ML(0.5%) NEB SOLN NEB SCH ×5 (00:16→19:08)
--- NOTE | 2020-01-07 00:16 | NUR ---
Respiratory note: PT REFUSING SCHED MED NEB TX AT THIS TIME. WILL CONTINUE TO MONITOR.
[2020-01-07 05:42] VITALS: BP 138/83
--- NOTE | 2020-01-07 05:59 | NUR ---
Respiratory note: PT REFUSING SCHEDULE MED NEB TX AT THIS TIME. NO SOB OR DISTRESS NOTED. WILL CONTINUE TO MONITOR.
[2020-01-07] MEDS: CLINDAMYCIN HCL 150 MG CAP PO SCH (06:14)
[2020-01-07] MEDS: FREE WATER PO SCH ×7 (06:15→23:38)
[2020-01-07] MEDS: HYDROcodone-ACET 10/325MG TAB PO PRN ×3 (06:33→21:30)
--- NOTE | 2020-01-07 07:30 | NUR ---
Opening Shift Note Assumed care of patient, awake and alert. A&Ox4. Patient was laying in bed. No S/S of distress/SOB or pain. Safety measures maintained by keeping the bed in locked and in lowest position, 2 side rails up, items and call light within reach. Instructed on POC and to call for assist PRN, will continue to monitor for changes Q1hr and PRN.
[2020-01-07] MEDS: Glucerna Carbsteady SHAKE Vanilla 8oz PO SCH ×3 (08:00→18:34)
--- NOTE | 2020-01-07 08:45 | NUR ---
Pt refused PT tx. She expressed interest in having a Julia lift. When asked by this COPY CHIEF how she get OOB at home she stated she uses a FWW to transfer to a W/C. Addendum: 01/07/20 at 1210 by Don Zepeda COPY CHIEF Amended: Links added.
[2020-01-07 09:00] VITALS: BP 136/77
[2020-01-07] MEDS ORDERED: POTASSIUM CHL 20 Meq TABLET PO ONE (09:45)
[2020-01-07] MEDS: ERTAPENEM SOD INJ 1 GM in SODIUM CHL 0.9% 50 ML IV SCH ×2 (10:00→10:52)
[2020-01-07] MEDS: LORATADINE 10 MG TAB PO SCH (10:27)
[2020-01-07] MEDS: PANTOPRAZOLE 40 MG TAB PO SCH (10:27)
[2020-01-07] MEDS: predniSONE 5 MG TAB PO SCH ×2 (10:27→21:29)
--- NOTE | 2020-01-07 12:12 | NUR ---
Respiratory note: PT REFUSED MN TX. NO SOB OR DISTRESS NOTED.
[2020-01-07] MEDS: SODIUM FERR GLUC 62.5MG/5ML 125 MG in SODIUM CHL 0.9% 100 ML IV SCH (12:55)
[2020-01-07 13:00] VITALS: BP 151/84
--- NOTE | 2020-01-07 16:00 | NUR ---
BRYANT NOTES / WOUND CARE Order to discontinue bryant catheter AND REPLACED WITH A NEW ONE. Bryant dc'd with clean technique following deflation of balloon. Patient tolerated well with no complaints of pain. NEW Bryant catheter INSERTED PER MD ORDER. 16 guage Vietnamese inserted with clean sterile technique. Patient tolerated well. WOUND CARE PERFORMED ON PT. WOUND CLEANED AND DRESSED WITH THERA HONEY. COVERED WITH OPTIFOAM. PT TOLERATED WELL.
[2020-01-07 17:00] VITALS: BP 138/83
--- NOTE | 2020-01-07 19:08 | NUR ---
Respiratory note: SCHEDULED MED NEB TX NOT GIVEN. NO RESP DISTRESS NOTED.
[2020-01-07 22:00] VITALS: BP 147/74
[2020-01-08] MEDS: ALBUTEROL SULF 2.5 MG/0.5ML(0.5%) NEB SOLN NEB SCH
[2020-01-08] MEDS: IPRATROPIUM BROM 0.5 MG/2.5ML INH SOL NEB SCH
--- NOTE | 2020-01-08 00:20 | NUR ---
Respiratory note: SCHEDULED MED NEB TX NOT GIVEN. PATIENT REFUSED, NO RESP DISTRESS NOTED.
[2020-01-08 05:00] VITALS: BP 127/71
[2020-01-08] MEDS: FREE WATER PO SCH ×5 (05:18→21:06)
[2020-01-08] MEDS: HYDROcodone-ACET 10/325MG TAB PO PRN ×4 (05:18→21:06)
--- NOTE | 2020-01-08 05:42 | NUR ---
SCHEDULED MN TX NOT GIVEN AT THIS TIME. PT DECLINED MN TX. PT IS AWAKE, ALERT AND ORIENTED. PT ON RA. 98%, HR 80 BPM, RR18 BPM, BS ARE CLEAR TO AUSCULTATION, SKIN IS WARM AND DRY TO THE TOUCH. PT DENIES SOB OR ANY OTHER RESPIRATORY DISTRESS. WILL CONTINUE TO MONITOR PT.
[2020-01-08 09:18] VITALS: BP 130/79
[2020-01-08] MEDS: Glucerna Carbsteady SHAKE Vanilla 8oz PO SCH ×3 (09:25→17:56)
[2020-01-08] MEDS: predniSONE 5 MG TAB PO SCH ×2 (09:47→21:06)
[2020-01-08] MEDS: LORATADINE 10 MG TAB PO SCH (09:47)
[2020-01-08] MEDS: ERTAPENEM SOD INJ 1 GM in SODIUM CHL 0.9% 50 ML IV SCH (09:47)
[2020-01-08] MEDS: PANTOPRAZOLE 40 MG TAB PO SCH (09:47)
[2020-01-08] MEDS ORDERED: FLORASTOR (S. BOULARDII) 250 MG CAP PO SCH (10:00)
[2020-01-08] MEDS ORDERED: ALBUTEROL SULF 2.5 MG/0.5ML(0.5%) NEB SOLN NEB PRN (10:30)
--- NOTE | 2020-01-08 11:06 | NUR ---
Nutrition Followup Notes Wt: 129.6kg Pt on isolation precautions. Pt diet advanced to soft diet. Pt po intake is still inadequate but improved aeb pt with 34% po intake avg x 2 days per RN nutrition note. Pt still with Glucerna TID d/t to inadequate po intake. Est Energy needs ABW 113 [id number] kcals (17-20 kcal/kgBW), Est Protein needs: 113-123 gms/day (1.0-1.1 gm/kgBW). Will continue to monitor and reassess prn. LAB: Gluc 60L, Alb 2.1L GI: Pt had 1 BM 01/05 per RN doc BS: 13 mod risk Please refer to wound assessment report for full details. PES: Altered nutrition related lab values r.t current chronic medical condition aeb elev RFT hyperglycemia Decreased nutrient needs r/t adiposity aeb pt`s high BMI of 50.2 kgm2 Partially resolved, patient diet advanced to soft diet: Impaired swallowing r.t current medical condition aeb pt`s intubated sedated with order of NPO Comments Will continue to monitor PO status, skin status, pertinent labs and weight trends. Will f/u in 3-5 days. 1) advance diet as medically feasible. (RESOLVED) 2) refer to CDE on DC. 3) consider MVI/C bid. 4) consider prostat 1 packet bid. 5) continue current plan of care
--- NOTE | 2020-01-08 11:30 | NUR ---
WOUND CARE NOTE: IN TO SEE PATIENT AT THIS TIME FOR WOUND RE-EVALUATION. PATIENT IS ON MED/SURG UNIT, CONTINUES TO REST ON SPECIALTY AIR BED. PATIENT IS AWAKE, ALERT, ORIENTED X 4, IN NO STATED PAIN. PATIENT IS ABLE TO ASSIST WITH HER TURNING/REPOSITIONING. CURRENT [facility] SCORE IS 13. PATIENT TURNED TO THE LEFT SIDE. PATIENT'S SACRUM AND LEFT LOWER BUTTOCK HAVE INTACT COLLAGEN SCARS NOTED. RIGHT BUTTOCK CONTINUES TO HAVE OPEN PRESSURE INJURY, MEASURING 4 X 1.2 CM. WOUND CONTINUES TO BE FULL THICKNESS, BUT IS IMPROVING, WITH SMALLER OPEN WOUND, BED NOTED. WOUND PHOTO TAKEN FOR REFERENCE. APPLIED THERAHONEY, OPTIFOAM GENTLE DRESSING TO WOUND. NO OTHER SKIN INTEGRITY ISSUES NOTED AT THIS TIME. RECOMMEND: CONTINUATION WITH ALL WOUND CARE ORDERS PREVIOUSLY PRESCRIBED BY . WOUND CARE TEAM WILL CONTINUE TO MONITOR. Addendum: 01/08/20 at 1327 by Kathy Miller RN Amended: Links added.
--- NOTE | 2020-01-08 12:00 | NUR ---
Last BM on 01/03, MD made aware, offered laxative, patient refused.
[2020-01-08 12:19] VITALS: BP 140/81
[2020-01-08] MEDS: SODIUM FERR GLUC 62.5MG/5ML 125 MG in SODIUM CHL 0.9% 100 ML IV SCH (12:28)
[2020-01-08] MEDS ORDERED: PANT40T PO (15:03)
[2020-01-08] MEDS ORDERED: PRE5T PO (15:03)
--- NOTE | 2020-01-08 15:30 | NUR ---
UA and UA culture sent to lab.
[2020-01-08 15:59] LABS: Urine Bacteria NONE SEEN /hpf (None Seen); Urine Blood 2+ /uL (Negative); Urine Budding Yeast FEW /hpf (None Seen); Urine Hyaline Cast MOD /lpf (0 - 2); Urine Mucus FEW (None Seen); Urine WBC 1369 /hpf (0 - 5); Urine WBC Clumps PRESENT /hpf (None Seen)
[2020-01-08 16:44] VITALS: BP 138/82
--- NOTE | 2020-01-08 20:00 | NUR ---
Respiratory note: PT ASSESSED FOR PRN MED NEB TX. HR 83, RR 20, SPO2 99% ON RA. NO S/S OF ANY RESPIRATORY DISTRESS NOTED. ADVISED PT TO CALL IF TX IS NEEDED.
[2020-01-08 22:00] VITALS: BP 128/70
[2020-01-08 23:39] VITALS: BP 128/70
[2020-01-09] MEDS: FREE WATER PO SCH ×5 (02:59→18:04)
[2020-01-09] MEDS: HYDROcodone-ACET 10/325MG TAB PO PRN ×3 (03:00→15:12)
[2020-01-09 05:00] VITALS: BP 128/76
[2020-01-09 05:43] LABS: Hemoglobin 7.3 g/dL (12.2-16.2)
[2020-01-09 05:45] LABS: Hematocrit 22.6 % (36.0-46.0)
[2020-01-09 06:07] LABS: BUN/Creatinine Ratio 10.2; Calcium 7.9 mg/dL (8.5-10.1); Potassium 3.6 mmol/L (3.5-5.1)
--- NOTE | 2020-01-09 07:20 | NUR ---
OPENING NOTE ASSUMED CARE OF PT. ALERT AND ORIENTED. NO S/S OF SOB/DISTRESS NOTED. BED SET TO LOWEST POSITION/LOCKED, BEDSIDE RAILS UP X2, CALL LIGHT WITHIN REACH. INSTRUCTED PT TO CALL FOR ASSISTANCE. UPDATED ON POC. WILL CONTINUE TO MONITOR Q1HR AND PRN.
[2020-01-09] MEDS: Glucerna Carbsteady SHAKE Vanilla 8oz PO SCH ×2 (08:00→12:00)
[2020-01-09 08:18] VITALS: BP 136/77
[2020-01-09] MEDS: predniSONE 5 MG TAB PO SCH (08:50)
[2020-01-09] MEDS: LORATADINE 10 MG TAB PO SCH (08:50)
[2020-01-09] MEDS: PANTOPRAZOLE 40 MG TAB PO SCH (08:50)
[2020-01-09] MEDS: ERTAPENEM SOD INJ 1 GM in SODIUM CHL 0.9% 50 ML IV SCH (08:57)
[2020-01-09 11:58] VITALS: BP 140/78
[2020-01-09] MEDS: SODIUM FERR GLUC 62.5MG/5ML 125 MG in SODIUM CHL 0.9% 100 ML IV SCH (13:11)
[2020-01-09] MEDS ORDERED: FLUCONAZOLE 100 MG TAB PO ONE (14:00)
[2020-01-09] MEDS ORDERED: FLUC200T50 PO (14:45)
[2020-01-09 16:42] VITALS: BP 143/91
[2020-01-09 17:09] VITALS: BP 140/78
--- NOTE | 2020-01-09 17:24 | NUR ---
D/C Planning Faxed updated order to [facility]. Placed follow up called to Lucille [phone] advising her patient will discharge home today. Faxed transportation form request to [facility] requesting for a fish bait picker time between 17:30-18:00. Received a follow up called from Lamar with [facility] advising me transportation has been arranged with [facility] ) between 17:30-18:00. Informed VALERIA Brown.
--- NOTE | 2020-01-09 17:57 | NUR ---
DISCHARGE PICTURES PATIENT REFUSED DISCHARGE PICTURES.
--- NOTE | 2020-01-09 17:57 | NUR ---
Discharge Discharge instructions given as ordered. Encourage to follow up with PMD as instructed. All questions and concerns addressed. Patient verbalized understanding. Patient is being discharge with [facility] cath and midline. Home Health with start 24-48 hr after discharge. 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
--- NOTE | 2020-01-09 18:44 | NUR ---
Patient transported with all personal belongings. No distress noted at time of departure.
== END 2020-01-09 18:47 | disposition home health service (06) | DRG 720 ==
LOC: EDUNIT# 13:23 → ER 13:23 → EDBD 13:23 → TELE 13:24 → ICU WEST 12-26 20:39 → DOU IN ICU 01-01 10:49 → TELE-CENTR 01-03 22:51 → CENTRAL 01-04 11:55
PROVIDERS: ADMIT Nurse Practitioner Acute Care; ATTEND Internal Medicine
PROC: 02HV33Z Insertion of Infusion Device into Superior Vena Cava, Percutaneous Approach (ICD-10-PCS; principal; 2019-12-24)
PROC: 5A1955Z Respiratory Ventilation, Greater than 96 Consecutive Hours (ICD-10-PCS; 2019-12-26)
PROC: 0BH17EZ Insertion of Endotracheal Airway into Trachea, Via Natural or Artificial Opening (ICD-10-PCS; 2019-12-26)
PROC: 30233N1 Transfusion of Nonautologous Red Blood Cells into Peripheral Vein, Percutaneous Approach (ICD-10-PCS; 2020-01-02)
DX: A41.9 Sepsis, unspecified organism (principal); T83.511A Infection and inflammatory reaction due to indwelling urethral catheter, initial encounter; N17.0 Acute kidney failure with tubular necrosis; J96.00 Acute respiratory failure, unspecified whether with hypoxia or hypercapnia; R65.21 Severe sepsis with septic shock; E43 Unspecified severe protein-calorie malnutrition; I50.33 Acute on chronic diastolic (congestive) heart failure; E66.01 Morbid (severe) obesity due to excess calories; J18.9 Pneumonia, unspecified organism; E11.22 Type 2 diabetes mellitus with diabetic chronic kidney disease; E87.6 Hypokalemia; N18.3 Chronic kidney disease, stage 3 (moderate); K27.9 Peptic ulcer, site unspecified, unspecified as acute or chronic, without hemorrhage or perforation; D50.9 Iron deficiency anemia, unspecified; F41.9 Anxiety disorder, unspecified; K21.9 Gastro-esophageal reflux disease without esophagitis; I48.91 Unspecified atrial fibrillation; B96.1 Klebsiella pneumoniae [K. pneumoniae] as the cause of diseases classified elsewhere; I13.0 Hypertensive heart and chronic kidney disease with heart failure and stage 1 through stage 4 chronic kidney disease, or unspecified chronic kidney disease; N30.01 Acute cystitis with hematuria; Z20.828 Contact with and (suspected) exposure to other viral communicable diseases; Z74.01 Bed confinement status; Z99.3 Dependence on wheelchair; Z86.718 Personal history of other venous thrombosis and embolism; Z86.73 Personal history of transient ischemic attack (TIA), and cerebral infarction without residual deficits; Z79.899 Other long term (current) drug therapy; Z88.5 Allergy status to narcotic agent; L89.313 Pressure ulcer of right buttock, stage 3; Z68.42 Body mass index [BMI] 45.0-49.9, adult
CPT/HCPCS: 31500; 36415; 36569; 36600; 70450; 71045; 71250; 73501; 80048; 80053; 80202; 81001; 82728; 82805; 82962; 83036; 83605; 83615; 83735; 83880; 84100; 84443; 84484; 85007; 85014; 85018; 85025; 85027; 85379; 85610; 85730; 86141; 86850; 86900; 86901; 86920; 87040; 87070; 87077; 87081; 87086; 87088; 87186; 87205; 87804; 87880; 92610; 93005; 93970; 94002; 94003; 94640; 99291; C9113; G0378; J0330; J0696; J1335; J2001; J2185; J2250; J2543; J2704; J3480; J7060; P9047